=== PATIENT | male | born 1980 | race Caucasian/White ===

== ENCOUNTER 2019-10-10 02:13 | Observation (INO) ==
--- NOTE | 2019-10-10 02:38 | Emergency Department Note ---
History of Present Illness General Chief complaint: Neuro Symptoms/Deficit Stated complaint: LEFT SIDE NUMB, FINGERS, LEG, LIPS Time Seen by Provider: 10/10/19 02:26 History of Present Illness This is a 39-year-old male that presents to the emergency department via private vehicle with complaints of "left-sided numbness, fingers, leg, left". The patient states that earlier today while playing videogames around 3:15 PM he noticed that his left hand, left foot and upper lip were numb. He describes them as being asleep. He denies any trauma or injury. No history of CVA, TIA or other neurologic event. He denies any speech trouble or weakness. No fevers, chills, chest pain or shortness of breath. His mother at bedside does note that he has a history of shunt placement around 1989. Patient denies any pain. He does state that he took his blood pressure medication today but does sometimes forget to take his medications. Home Medications Home Medications Medication Instructions Recorded Confirmed Type atorvastatin [Lipitor] 10 mg PO DAILY 01/16/18 10/10/19 History lisinopril [Zestril] 40 mg PO DAILY 01/16/18 10/10/19 History Trulicity 0.75 mg SUBCUT WK 03/08/19 10/10/19 History gabapentin 300 mg PO HS 03/08/19 10/10/19 History Allergies Allergy/AdvReac Type Severity Reaction Status Date / Time Penicillins Allergy Intermediate rash, hives Verified 10/10/19 02:53 WALNUTS Allergy Severe ANAPHYLAXIS Uncoded 10/10/19 02:53 Past Med/Surg History Medical History (Updated 10/10/19 @ 21:38 by Reese Ziegler PA-C) Diabetes Hypertension Jaw dislocation Noncompliance with medication regimen Surgical History S/P [employer] shunt Social History Smoking Status: Never smoker Hx Alcohol Use: No Hx Substance Use: No Preferred Language: Italian Communication Ability: Effective Neck Skewer Required: No Beliefs That Will Affect Care: None marital status: Current Living Situation: Spouse current occupational status: unemployed Other Information That Helps Us Care for You: No Feels Safe at Home: Yes Safety Concerns: Feels Safe At This Time Review of Systems A total of 10 systems reviewed and were otherwise negative Physical Exam Vital Signs Vital Signs - 24 hr 10/10/19 02:17 10/10/19 02:31 10/10/19 02:57 Temperature 36.8 C Temperature Source Oral Pulse Rate 123 H Pulse Rate [Bilateral Apical] 104 H 107 H Pulse Rhythm [Bilateral Apical] Respiratory Rate 20 18 20 Respiratory Effort / Characteristics Non-Labored Spontaneous Non-Labored Respiratory Depth Normal Normal Respiratory Pattern Blood Pressure 196/142 H Blood Pressure [Right Arm] 201/131 H 209/137 H Blood Pressure Mean 160 Blood Pressure Mean [Right Arm] 154 161 Pulse Oximetry 95 97 94 Oxygen Delivery Method Room Air Room Air Room Air Sepsis New/Unexplained Change in Mental Status N/A Sepsis Action Taken by Nursing No Action Required 10/10/19 03:34 10/10/19 03:41 10/10/19 04:00 Temperature Temperature Source Pulse Rate Pulse Rate [Bilateral Apical] 88 92 H 86 Pulse Rhythm [Bilateral Apical] Regular Respiratory Rate 14 20 20 Respiratory Effort / Characteristics Non-Labored Spontaneous Respiratory Depth Normal Respiratory Pattern Regular Blood Pressure Blood Pressure [Right Arm] 179/106 H 181/110 H 190/121 H Blood Pressure Mean Blood Pressure Mean [Right Arm] 130 133 144 Pulse Oximetry 93 93 95 Oxygen Delivery Method Room Air Room Air Room Air Sepsis New/Unexplained Change in Mental Status Sepsis Action Taken by Nursing 10/10/19 04:58 Temperature Temperature Source Pulse Rate Pulse Rate [Bilateral Apical] 93 H Pulse Rhythm [Bilateral Apical] Respiratory Rate 20 Respiratory Effort / Characteristics Respiratory Depth Respiratory Pattern Blood Pressure Blood Pressure [Right Arm] 227/144 H Blood Pressure Mean Blood Pressure Mean [Right Arm] 171 Pulse Oximetry 96 Oxygen Delivery Method Room Air Sepsis New/Unexplained Change in Mental Status Sepsis Action Taken by Nursing VITAL SIGNS - Vital signs and nursing notes were reviewed. Stable and afebrile. GENERAL -39-year-old male appearing his stated age who is in no acute distress. Communicates well with provider and answers questions appropriately. SKIN - Without rashes. No meningeal or petechial rash. HEAD - NC/AT. EYES - PERRL with EOMI bilaterally. Sclera anicteric. EARS - No deformities of external structures noted on gross examination bilaterally. NOSE - Midline and without cyanosis. No epistaxis or purulent drainage noted. Septum midline without deviation or septal hematoma noted. MOUTH/OROPHARYNX - Without perioral cyanosis. Buccal mucosa pink and moist and without leukoplakia. Tongue midline with equal elevation of palate bilaterally. No tonsillar hypertrophy, erythema, or exudates noted. Fair dentition noted. NECK - Neck with FROM. Supple to palpation. No lymphadenopathy noted. No nuchal rigidity. LUNGS - Chest wall symmetric without accessory muscle use, intercostals retractions, or central cyanosis. Normal vesicular breath sounds CTA B/L. No wheezes, rales, or rhonchi appreciated. CARDIAC - RRR with S1/S2. No murmur, rubs, or gallops appreciated. ABDOMEN - Abdominal contour normal without pulsations or visible masses. BS normoactive all four quadrants. No tenderness, palpable masses, hepatosplenomegaly, or ascites noted. EXTREMITIES - No clubbing or peripheral cyanosis. No pretibial edema present. +5/5 strength noted in UE/LE bilaterally. NEUROLOGIC - Cranial nerves II through XII grossly intact. Sensory intact to light touch throughout. No neurovascular deficit on examination. Blending Operator strength within the upper extremity within normal limits. PSYCH - A&Ox3 and cooperates fully with examiner. Pt is very pleasant and interacts well with examiner. Course Administered Medications Discontinued Medications Amlodipine Besylate (Amlodipine Besylate 5 Mg Tab) 5 mg PO QAM [facility] Stop: 11/09/19 09:44 Last Admin: 10/10/19 09:51 Dose: 5 mg Documented by: [id number] Aspirin (Aspirin Chew 324 Mg) 324 mg PO NOW STA Stop: 10/10/19 04:30 Last Admin: 10/10/19 05:01 Dose: 324 mg Documented by: [id number] Atorvastatin Calcium (Atorvastatin 10 Mg Tab) 10 mg PO DAILY [facility]IN[facility] Stop: 11/09/19 08:59 Last Admin: 10/10/19 07:09 Dose: 10 mg Documented by: [id number] Enoxaparin Sodium (Enoxaparin Inj 40 Mg/0.4 Ml Syr) 40 mg SQ QAM [facility] Stop: 11/09/19 08:59 Last Admin: 10/10/19 07:09 Dose: 40 mg Documented by: [id number] Hydralazine HCl (Hydralazine Hcl 20 Mg/Ml Vial) 10 mg IV NOW STA Stop: 10/10/19 05:13 Last Admin: 10/10/19 05:27 Dose: 10 mg Documented by: [id number] Potassium Chloride/Sodium Chloride (Normal Saline W/20 Meq Kcl) 20 meq in 1,000 mls @ 40 mls/hr IV .Q24H ONE Stop: 10/11/19 05:49 Last Admin: 10/10/19 07:06 Dose: 40 mls/hr Documented by: [id number] Magnesium Sulfate/Dextrose (Magnesium Sulfate / D5w) 1 gm in 100 mls @ 50 mls/hr IV ONE ONE Stop: 10/10/19 07:54 Last Infusion: 10/10/19 08:19 Dose: 0 mls/hr Documented by: [id number] Admin: 10/10/19 07:06 Dose: 50 mls/hr Documented by: [id number] Insulin Aspart (Insulin Aspart 100 Units/Ml 3 Ml Pen) 0 units SC ACHS [facility]IN[facility] Stop: 11/09/19 05:49 Last Admin: 10/10/19 08:22 Dose: 3 units Documented by: [id number] Cosigned by: [id number] Admin: 10/10/19 07:07 Dose: 6 units Documented by: [id number] Cosigned by: [id number] Insulin Glargine (Insulin Glargine Solostar 100 Units/Ml 3 Ml Pen) 30 units SC NOW STA Stop: 10/10/19 05:02 Last Admin: 10/10/19 05:24 Dose: Not Given Documented by: [id number] Insulin Glargine (Insulin Glargine Solostar 100 Units/Ml 3 Ml Pen) 35 units SC NOW STA Stop: 10/10/19 05:07 Last Admin: 10/10/19 05:19 Dose: 35 units Documented by: [id number] Cosigned by: [id number] Ioversol (Optiray 320 125ml) 119 ml IV ONCE ONE Stop: 10/10/19 03:13 Last Admin: 10/10/19 03:12 Dose: 119 ml Documented by: [id number] Labetalol HCl (Labetalol Hcl Iv 5 Mg/Ml 20ml) 10 mg IV NOW STA Stop: 10/10/19 03:23 Last Admin: 10/10/19 03:29 Dose: 10 mg Documented by: [id number] Cosigned by: [id number] Labetalol HCl (Labetalol Hcl Iv 5 Mg/Ml 20ml) 10 mg IV NOW STA Stop: 10/10/19 04:28 Last Admin: 10/10/19 04:32 Dose: 10 mg Documented by: [id number] Cosigned by: [id number] Lisinopril (Lisinopril 20 Mg Tab) 20 mg PO NOW STA Stop: 10/10/19 05:02 Last Admin: 10/10/19 05:23 Dose: Not Given Documented by: [id number] Lisinopril (Lisinopril 20 Mg Tab) 40 mg PO NOW STA Stop: 10/10/19 05:06 Last Admin: 10/10/19 05:18 Dose: 40 mg Documented by: [id number] Potassium Chloride (Potassium Chloride 20 Meq Tabcr) 40 meq PO NOW STA Stop: 10/10/19 04:35 Last Admin: 10/10/19 05:01 Dose: 40 meq Documented by: [id number] Critical Care Time Total Critical Care Time: 35 I have personally spent greater than 35 minutes of critical care time in the direct management of this patient. This includes bedside care, interpretation of diagnostic studies, and testing, discussion with consultants, patient, and family members, and other required patient management activities. This 35 minutes is in excess of all separately billable procedures. Medical Decision Making Laboratory Data Result diagrams: 10/10/19 02:36 10/10/19 02:40 Lab Results 10/10/19 10/10/19 10/10/19 Range/Units 02:36 02:36 02:36 WBC 9.76 (4.8-10.8) K/uL RBC 6.00 (4.7-6.1) M/uL Hgb 18.1 H (14.0-18.0) g/dL POC Hgb (14.0-18.0) g/dl Hct 48.5 (42-52) % POC Hct (42-52) % MCV 80.8 (80-100) fL MCH 30.2 (25-34) pg MCHC 37.3 H (32-36) g/dL RDW Std Deviation 37.3 (36.4-46.3) fL RDW Coeff of Anjali 12.7 (11.5-14.5) % Plt Count 228 (130-400) K/uL MPV 10.8 H (7.4-10.4) fL Immature Gran % (Auto) 0.6 % Neut % (Auto) 55.3 % Lymph % (Auto) 34.5 % Jennings % (Auto) 8.1 % Eos % (Auto) 1.3 % Baso % (Auto) 0.2 % Neut # (Auto) 5.39 (1.4-6.5) K/uL Lymph # (Auto) 3.37 (1.2-3.4) K/uL Jennings # (Auto) 0.79 H (0.11-0.59) K/uL Eos # (Auto) 0.13 (0-0.5) K/uL Baso # (Auto) 0.02 (0-0.2) K/uL Immature Gran # (Auto) 0.06 H (0.00-0.02) K/uL PT 10.0 (9.0-12.0) Seconds INR 0.9 (0.9-1.1) APTT 26.9 (21.0-31.0) Seconds PTT Ratio 1.0 POC Sodium (135-144) mmol/L Sodium (136-145) mmol/L POC Potassium (3.3-5.0) mmol/L Potassium (3.5-5.1) mmol/L POC Chloride (101-112) mmol/L Chloride (98-107) mmol/L Carbon Dioxide (21-32) mmol/L POC Total CO2 (24-31) mmol/L Anion Gap (3-11) POC Anion Gap (16-25) mmol/L POC BUN (7-18) mg/dl BUN (7-18) mg/dl Creatinine (0.6-1.4) mg/dl POC Creatinine (0.6-1.3) mg/dl Est Cr Clr Drug Dosing ml/min Est GFR ( Amer) Est GFR (Non-Af Amer) BUN/Creatinine Ratio (10-20) Glucose (70-99) mg/dl POC Glucose (other) (70-99) mg/dl Estimat Average Glucose 266 mg/dl Hemoglobin A1c 10.9 H (4.5-5.6) % Calcium (8.5-10.1) mg/dl POC Ioniz Calcium Manoj (1.12-1.32) mmol/l Magnesium (1.8-2.4) mg/dl Total Bilirubin (0.2-1) mg/dl AST (15-37) U/L ALT (12-78) U/L Alkaline Phosphatase (45-117) U/L Troponin I (0-0.045) ng/ml Total Protein (6.4-8.2) gm/dl Albumin (3.4-5.0) gm/dl Globulin (2.5-4.0) gm/dl Albumin/Globulin Ratio (0.9-2) Beta-Hydroxybutyric Acd (0.2-2.81) mg/dl TSH (0.300-4.500) uIu/ml 10/10/19 10/10/19 Range/Units 02:40 02:48 WBC (4.8-10.8) K/uL RBC (4.7-6.1) M/uL Hgb (14.0-18.0) g/dL POC Hgb 17.0 (14.0-18.0) g/dl Hct (42-52) % POC Hct 50 (42-52) % MCV (80-100) fL MCH (25-34) pg MCHC (32-36) g/dL RDW Std Deviation (36.4-46.3) fL RDW Coeff of Anjali (11.5-14.5) % Plt Count (130-400) K/uL MPV (7.4-10.4) fL Immature Gran % (Auto) % Neut % (Auto) % Lymph % (Auto) % Jennings % (Auto) % Eos % (Auto) % Baso % (Auto) % Neut # (Auto) (1.4-6.5) K/uL Lymph # (Auto) (1.2-3.4) K/uL Jennings # (Auto) (0.11-0.59) K/uL Eos # (Auto) (0-0.5) K/uL Baso # (Auto) (0-0.2) K/uL Immature Gran # (Auto) (0.00-0.02) K/uL PT (9.0-12.0) Seconds INR (0.9-1.1) APTT (21.0-31.0) Seconds PTT Ratio POC Sodium 134 L (135-144) mmol/L Sodium 134 L (136-145) mmol/L POC Potassium 3.2 L (3.3-5.0) mmol/L Potassium 3.3 L (3.5-5.1) mmol/L POC Chloride 97 L (101-112) mmol/L Chloride 101 (98-107) mmol/L Carbon Dioxide 26 (21-32) mmol/L POC Total CO2 26 (24-31) mmol/L Anion Gap 7.0 (3-11) POC Anion Gap 15.0 L (16-25) mmol/L POC BUN 10 (7-18) mg/dl BUN 9 (7-18) mg/dl Creatinine 1.15 (0.6-1.4) mg/dl POC Creatinine 0.9 (0.6-1.3) mg/dl Est Cr Clr Drug Dosing 104.0 ml/min Est GFR ( Amer) 91.7 Est GFR (Non-Af Amer) 79.2 BUN/Creatinine Ratio 8.2 L (10-20) Glucose 318 H* (70-99) mg/dl POC Glucose (other) 325 H (70-99) mg/dl Estimat Average Glucose mg/dl Hemoglobin A1c (4.5-5.6) % Calcium 8.0 L (8.5-10.1) mg/dl POC Ioniz Calcium Manoj 1.17 (1.12-1.32) mmol/l Magnesium 1.7 L (1.8-2.4) mg/dl Total Bilirubin 0.6 (0.2-1) mg/dl AST 33 (15-37) U/L ALT 57 (12-78) U/L Alkaline Phosphatase 92 (45-117) U/L Troponin I 0.034 (0-0.045) ng/ml Total Protein 7.1 (6.4-8.2) gm/dl Albumin 3.0 L (3.4-5.0) gm/dl Globulin 4.1 H (2.5-4.0) gm/dl Albumin/Globulin Ratio 0.7 L (0.9-2) Beta-Hydroxybutyric Acd (0.2-2.81) mg/dl TSH 4.220 (0.300-4.500) uIu/ml Imaging Data Radiologist's Impression: CT HEAD: No intracranial hemorrhage, mass-effect, or edema. No acute infarct. No hydrocephalus. There is a left-sided shunt catheter which terminates within a left temporal arachnoid cyst. Radiologist: Larry Chiang MD Study ready at 03:12 and initial results transmitted at 03:45 CTA HEAD: No arterial occlusion, high-grade stenosis, aneurysm, or dissection. Radiologist: Larry Chiang MD Study ready at 03:12 and initial results transmitted at 03:47 CTA NECK: No arterial occlusion, high-grade stenosis, aneurysm, or dissection. Radiologist: Larry Chiang MD Study ready at 03:15 and initial results transmitted at 03:50 ECG Data Additional Comments: Sinus tachycardia rate of 102 bpm. QTc [address] No ST elevation. No ischemic change. This is compared EKG of August 2015 and no significant change was found. MDM Narrative Patient was seen and evaluated as above in room A3. Review was performed of nursing notes and vital signs. I did review pertinent previous visits and patient history. After obtaining a thorough history and physical examination the above work up was performed. Patient presents to us today with about 11 hours now of left hand, left foot and left upper lip numbness. No trauma or injury. No speech trouble or true weakness on examination. Patient is hypertensive on arrival. He is afebrile. Given the patient's presentation CTA head neck as well as noncontrast CT scan of the head obtained. Patient was not made a stroke alert secondary to duration of symptoms and is outside of the TPA window. He was given IV labetalol x2 here secondary to persistent hypertension. The imaging did not reveal any acute process. No leukocytosis or anemia. There is decrease in sodium, potassium as well as magnesium. Glucose noted to be 318. With the patient's presentation and hypertension it was felt that further evaluation and management in inpatient setting would be warranted. Case discussed with the attending physician as well as the hospitalist. Patient although initially apprehensive to staying as he was worried about coronavirus was willing to stay for further evaluation and management once a thorough discussion of benefit versus risk was had with the patient. Case was discussed with the attending physician. GCS: 15 In the evaluation and treatment of this patient, the following differential diagnoses were considered: Concussion, Contrecoup Injury, Brain Tumor, Depression, Encephalitis, Hypothyroidism, Meningitis, CVA, TIA, Migraine, Cluster Headache, Intracranial Abnormality, Intracranial Hemorrhage, Subdural Hematoma, Subarachnoid Hemorrhage, Hydrocephalus. Impression & Plan Hypertensive crisis Discharge Plan Visit Data Chief Complaint: Neuro Symptoms/Deficit Stated Complaint: LEFT SIDE NUMB, FINGERS, LEG, LIPS ED Provider: Aditya Mcelroy ED Midlevel Provider: Reese Ziegler Discharge Problem: Hypertensive crisis Patient Disposition: Admitted As Inpatient Discharge Instructions Interventions: ED Discharge Assessment Last Done: 10/10/19 05:32
[2019-10-10 02:55] LABS: Basophils # (auto) 0.02 K/uL (0-0.2); Basophils % (auto) 0.2 %; Eosinophils # (auto) 0.13 K/uL (0-0.5); Eosinophils % (auto) 1.3 %; Hematocrit (blood only) 48.5 % (42-52); Hemoglobin 18.1 g/dL (14.0-18.0); Immature Granulocytes # (auto) 0.06 K/uL (0.00-0.02); Immature Granulocytes % (auto) 0.6 %; Lymphocytes # (auto) 3.37 K/uL (1.2-3.4); Lymphocytes % (auto) 34.5 %; Mean Corpuscular Hemoglobin 30.2 pg (25-34); Mean Corpuscular Hgb Conc 37.3 g/dL (32-36); Mean Corpuscular Volume 80.8 fL (80-100); Mean Platelet Volume 10.8 fL (7.4-10.4); Monocytes # (auto) 0.79 K/uL (0.11-0.59); Monocytes % (auto) 8.1 %; Neutrophils # (auto) 5.39 K/uL (1.4-6.5); Neutrophils % (auto) 55.3 %; Platelet Count 228 K/uL (130-400); RDW Coefficient of Variation 12.7 % (11.5-14.5); RDW Standard Deviation 37.3 fL (36.4-46.3); White Blood Count 9.76 K/uL (4.8-10.8)
[2019-10-10 03:02] LABS: INR 0.9 (0.9-1.1); Partial Thromboplastin Time 26.9 Seconds (21.0-31.0)
[2019-10-10 03:04] LABS: iSTAT Creatinine 0.9 mg/dl (0.6-1.3); iSTAT Ionized Calcium 1.17 mmol/l (1.12-1.32); iSTAT Potassium 3.2 mmol/L (3.3-5.0)
[2019-10-10] MEDS ORDERED: OPTIRAY 320 125ml IV ONE (03:12)
[2019-10-10 03:19] LABS: Albumin Globulin Ratio 0.7 (0.9-2); BUN Creatinine Ratio 8.2 (10-20); Bilirubin,Total 0.6 mg/dl (0.2-1); Est GFR (African American) 91.7; Est GFR (Non-African American) 79.2; Globulin 4.1 gm/dl (2.5-4.0); Magnesium 1.7 mg/dl (1.8-2.4); Potassium 3.3 mmol/L (3.5-5.1); Total Protein 7.1 gm/dl (6.4-8.2); Troponin I 0.034 ng/ml (0-0.045)
[2019-10-10] MEDS ORDERED: LABETALOL HCL IV 5 MG/ML 20ML IV STA ×2 (03:22→04:27)
[2019-10-10] MEDS ORDERED: ASPIRIN CHEW 324 MG PO STA (04:29)
[2019-10-10] MEDS ORDERED: POTASSIUM CHLORIDE 20 MEQ TABCR PO STA (04:34)
[2019-10-10] MEDS ORDERED: INSULIN GLARGINE SOLOSTAR 100 UNITS/ML 3 ML PEN SC STA ×2 (05:01→05:06)
[2019-10-10] MEDS ORDERED: lisinopriL 20 MG TAB PO STA ×2 (05:01→05:05)
[2019-10-10] MEDS ORDERED: HydrALAZINE HCL 20 MG/ML VIAL IV STA (05:12)
--- NOTE | 2019-10-10 05:12 | History & Physical Report ---
Date of Service October 10, 2019 Assessment & Plan (1) Hypertensive crisis: Uncontrolled BP associated with CVA symptoms hx medication noncompliance hx PAD as per records (LE circulation) DM 2 on Trulicity, suboptimal control as of recent outpatient hemoglobin A1c all 11.8 June 2019h Hypokalemia, hypomagnesemia hx childhood brain tumor status post surgery. Possible intellectual disability/impairment PCU Permissive hypertension given possible strokelike symptoms Hydralazine 1 dose now given SBP 200s despite 2 doses of Labetalol Facilitate home lisinopril Consider adding Norvasc to regimen depending on control Aspirin for stroke prevention Neurochecks MRI brain, TTE, Neurology consult RE numbness left side Check lipid profile Replace electrolytes Basal insulin, ISS BG goal [id number], carb count coverage, update hemoglobin A1c Diabetic education Patient counseled about need to comply with home medications given history of vascular disease. PT OT eval DVT prophylaxis per Lovenox subcu Full code Will request providers to contact patient's with updates regarding plan of care due to some degree of intellectual impairment perceived during patient encounter. (Ms. Nilsa Hernández, contact #[phone]) Text document was generated using [employer] voice recognition software. It may contain grammatical or spelling errors. Kindly contact undersigned for clarification of any documentation item in question. History of Present Illness Chief Complaint: Numbness of the lip and left side Primary Care Provider: Lexus Mitchell, History obtained from patient, family, and records. 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 Yesterday afternoon patient noted numbness on his upper lip later followed by numbness of the left hand and left foot while playing video games. No chest pain, no S OB. No headache. No prior episodes in the past. Admits to erratic compliance with home medications. Last last time he took aspirin was last week for headache symptoms. No unusual stress at home. Denies NSAID intake. No concerns about snoring during sleep as per . No recent tick bites. Patient does not check his blood pressure at home. At the ER, SBP 220s at the highest. Patient received 2 doses of IV Labetalol at the ER. Patient given aspirin at the ER for possible stroke. Patient initially did not want to stay for admission citing concerns about potential COVID-19 exposure. Patient later relented after further discussion with the ER provider. Patient currently stating that he will just stay for 1 day and will denny the hospital if " I get COVID-19." Medical History as above Surgical History : SIGNALMAN shunt surgery Family History : Diabetes, lung cancer Personal/Social history : Non-smoker, no EtOH intake, disabled Allergies Allergy/AdvReac Type Severity Reaction Status Date / Time Penicillins Allergy Intermediate rash, hives Verified 10/10/19 02:53 WALNUTS Allergy Severe ANAPHYLAXIS Uncoded 10/10/19 02:53 Home Medications Home Medications Medication Instructions Recorded Confirmed Type atorvastatin [Lipitor] 10 mg PO DAILY 01/16/18 10/10/19 History lisinopril [Zestril] 40 mg PO DAILY 01/16/18 10/10/19 History dulaglutide [Trulicity] 0.75 mg SUBCUT WK 03/08/19 10/10/19 History gabapentin 300 mg PO HS 03/08/19 10/10/19 History Past Med/Surg History Medical History (Updated 10/10/19 @ 06:12 by Galileo Diallo MD) Diabetes Hypertension Jaw dislocation Noncompliance with medication regimen Surgical History S/P SIGNALMAN shunt Social History Smoking Status: Never smoker Hx Alcohol Use: No Hx Substance Use: No Preferred Language: Tamazight Communication Ability: Effective Bolt Man Required: No Beliefs That Will Affect Care: None marital status: Current Living Situation: Spouse current occupational status: unemployed Other Information That Helps Us Care for You: No Feels Safe at Home: Yes Safety Concerns: Feels Safe At This Time Review of Systems Review of Systems: As per HPI, all 10 systems reviewed, all other ROS negative Physical Exam Physical Exam: GENERAL: Comfortable, obese, no respiratory distress SKIN: Normal color, warm HEENT: [place] palpebral conjunctivae, no ptosis, dry buccal mucosa NECK : Supple, short neck, no tenderness CHEST : CTA, no tenderness HEART : RRR, no obvious murmurs ABDOMEN: Some distention, nontender EXTREMITIES : No LE swelling/tenderness, no other conspicuous deformities noted NEUROLOGIC : Coherent, no facial asymmetry, episodic dysarthria (chronic speech impediment as per ), no other gross focality Results & Data Results & Data ([facility]) Vital Signs (Past 12 Hours) Vital Signs Temp Pulse Pulse Resp BP BP Pulse Ox 10/10/19 04:58 93 H 20 227/144 H 96 10/10/19 04:00 86 20 190/121 H 95 10/10/19 03:41 92 H 20 181/110 H 93 10/10/19 03:34 88 14 179/106 H 93 10/10/19 02:57 107 H 20 209/137 H 94 10/10/19 02:31 104 H 18 201/131 H 97 10/10/19 02:17 36.8 C 123 H 20 196/142 H 95 Laboratory Results Laboratory Results WBC 9.76 K/uL (4.8-10.8) 10/10/19 02:36 RBC 6.00 M/uL (4.7-6.1) 10/10/19 02:36 Hgb 18.1 g/dL (14.0-18.0) H 10/10/19 02:36 POC Hgb 17.0 g/dl (14.0-18.0) 10/10/19 02:48 Hct 48.5 % (42-52) 10/10/19 02:36 POC Hct 50 % (42-52) 10/10/19 02:48 MCV 80.8 fL (80-100) 10/10/19 02:36 MCH 30.2 pg (25-34) 10/10/19 02:36 MCHC 37.3 g/dL (32-36) H 10/10/19 02:36 RDW Std Deviation 37.3 fL (36.4-46.3) 10/10/19 02:36 RDW Coeff of Anjali 12.7 % (11.5-14.5) 10/10/19 02:36 Plt Count 228 K/uL (130-400) 10/10/19 02:36 MPV 10.8 fL (7.4-10.4) H 10/10/19 02:36 Immature Gran % (Auto) 0.6 % 10/10/19 02:36 Neut % (Auto) 55.3 % 10/10/19 02:36 Lymph % (Auto) 34.5 % 10/10/19 02:36 Campbell % (Auto) 8.1 % 10/10/19 02:36 Eos % (Auto) 1.3 % 10/10/19 02:36 Baso % (Auto) 0.2 % 10/10/19 02:36 Neut # (Auto) 5.39 K/uL (1.4-6.5) 10/10/19 02:36 Lymph # (Auto) 3.37 K/uL (1.2-3.4) 10/10/19 02:36 Campbell # (Auto) 0.79 K/uL (0.11-0.59) H 10/10/19 02:36 Eos # (Auto) 0.13 K/uL (0-0.5) 10/10/19 02:36 Baso # (Auto) 0.02 K/uL (0-0.2) 10/10/19 02:36 Immature Gran # (Auto) 0.06 K/uL (0.00-0.02) H 10/10/19 02:36 PT 10.0 Seconds (9.0-12.0) 10/10/19 02:36 INR 0.9 (0.9-1.1) 10/10/19 02:36 APTT 26.9 Seconds (21.0-31.0) 10/10/19 02:36 PTT Ratio 1.0 10/10/19 02:36 POC Sodium 134 mmol/L (135-144) L 10/10/19 02:48 Sodium 134 mmol/L (136-145) L 10/10/19 02:40 POC Potassium 3.2 mmol/L (3.3-5.0) L 10/10/19 02:48 Potassium 3.3 mmol/L (3.5-5.1) L 10/10/19 02:40 POC Chloride 97 mmol/L (101-112) L 10/10/19 02:48 Chloride 101 mmol/L (98-107) 10/10/19 02:40 Carbon Dioxide 26 mmol/L (21-32) 10/10/19 02:40 POC Total CO2 26 mmol/L (24-31) 10/10/19 02:48 Anion Gap 7.0 (3-11) 10/10/19 02:40 POC Anion Gap 15.0 mmol/L (16-25) L 10/10/19 02:48 POC BUN 10 mg/dl (7-18) 10/10/19 02:48 BUN 9 mg/dl (7-18) 10/10/19 02:40 Creatinine 1.15 mg/dl (0.6-1.4) 10/10/19 02:40 POC Creatinine 0.9 mg/dl (0.6-1.3) 10/10/19 02:48 Est Cr Clr Drug Dosing 104.0 ml/min 10/10/19 02:40 Est GFR ( Amer) 91.7 10/10/19 02:40 Est GFR (Non-Af Amer) 79.2 10/10/19 02:40 BUN/Creatinine Ratio 8.2 (10-20) L 10/10/19 02:40 Glucose 318 mg/dl (70-99) H* 10/10/19 02:40 POC Glucose (other) 325 mg/dl (70-99) H 10/10/19 02:48 Calcium 8.0 mg/dl (8.5-10.1) L 10/10/19 02:40 POC Ioniz Calcium Manoj 1.17 mmol/l (1.12-1.32) 10/10/19 02:48 Magnesium 1.7 mg/dl (1.8-2.4) L 10/10/19 02:40 Total Bilirubin 0.6 mg/dl (0.2-1) 10/10/19 02:40 AST 33 U/L (15-37) 10/10/19 02:40 ALT 57 U/L (12-78) 10/10/19 02:40 Alkaline Phosphatase 92 U/L (45-117) 10/10/19 02:40 Troponin I 0.034 ng/ml (0-0.045) 10/10/19 02:40 Total Protein 7.1 gm/dl (6.4-8.2) 10/10/19 02:40 Albumin 3.0 gm/dl (3.4-5.0) L 10/10/19 02:40 Globulin 4.1 gm/dl (2.5-4.0) H 10/10/19 02:40 Albumin/Globulin Ratio 0.7 (0.9-2) L 10/10/19 02:40 Beta-Hydroxybutyric Acd mg/dl (0.2-2.81) 10/10/19 02:[address] head initial read: No intracranial hemorrhage, mass-effect, or edema. No acute infarct. No hydrocephalus. Left-sided shunt catheter which terminates within the left temporal arachnoid cyst. CTA head/neck initial read no arterial occlusion, high-grade stenosis, aneurysm or dissection. Chest x-ray as per my interpretation cardiomegaly, no congestion EKG as per my interpretation : Rate 105, sinus tachycardia, LAD, LAFB, T wave flattening lateral leads
[2019-10-10 05:21] LABS: Thyroid Stimulating Hormone 4.22 uIu/ml (0.300-4.500)
[2019-10-10] MEDS ORDERED: GLUCOSE 40% GEL 15 GM TUBE PO PRN (05:50)
[2019-10-10] MEDS ORDERED: PROMETHAZINE HCL 12.5 MG in SODIUM CHLORIDE 0.9% 50 ML IV PRN (05:50)
[2019-10-10] MEDS ORDERED: NSS + 20MEQ KCL 20 MEQ/1,000 ML BAG IV ONE (05:50)
[2019-10-10] MEDS ORDERED: GLUCAGON FOR INJ 1 MG VIAL SQ PRN (05:50)
[2019-10-10] MEDS ORDERED: CARBOHYDRATES FOR HYPOGLYCEMIA PO PRN (05:50)
[2019-10-10] MEDS ORDERED: ACETAMINOPHEN 325 MG TAB PO PRN (05:50)
[2019-10-10] MEDS ORDERED: LORazepam 0.25 MG/0.5 ML VIAL IV PRN (05:50)
[2019-10-10] MEDS ORDERED: TRAMADOL HCL 50 MG TABLET PO PRN (05:50)
[2019-10-10] MEDS ORDERED: GLUCOSE 10 TABS/TUBE PO PRN (05:50)
[2019-10-10] MEDS ORDERED: NITROGLYCERIN SL 0.4 MG/TAB TAB SL PRN (05:50)
[2019-10-10] MEDS ORDERED: DEXTROSE 50% 50 ML SYRINGE IV PRN (05:50)
[2019-10-10] MEDS ORDERED: MAGNESIUM SULFATE / D5W 1 GM/100 ML BAG IV ONE (05:55)
[2019-10-10 06:13] LABS: Estimated Average Glucose 266 mg/dl; Hemoglobin A1C 10.9 % (4.5-5.6)
--- NOTE | 2019-10-10 06:52 | XRay Report ---
XR chest 1V portable HISTORY: 39 years-old Male htn acute hypertension COMPARISON: Chest radiographs 03/15/2015 TECHNIQUE: Portable AP view of the chest FINDINGS: Cardiac silhouette is enlarged. A catheter is again noted projecting over the left neck and chest. No pneumothorax, pleural effusion, airspace consolidation or overt pulmonary edema. Bones of the chest appear grossly intact. IMPRESSION: No acute process. ACT 112: Negative or not required by law. The above report was generated using voice recognition software. It may contain grammatical, syntax o r spelling errors. Electronically signed by: Kaz Lindo M.D. 10/10/2019 6:51 AM
[2019-10-10] MEDS: INSULIN ASPART 100 UNITS/ML 3 ML PEN SC SCH ×2 (07:07→08:22)
--- NOTE | 2019-10-10 07:11 | CT Scan Report ---
CT angio neck with con, CT angio head w con CLINICAL HISTORY: 39 years-old Male with Stroke evaluation, upper lip, L hand, L foot numb. Acute strokelike symptoms COMPARISON STUDY: Head CT of same day, head CT 03/15/2015. TECHNIQUE: Following the IV administration of 119 mL of Optiray 320, CT angiogram of the head and nec k was performed from the aortic arch to the skull apex. Images are reviewed in the axial, sagittal, a nd coronal planes. 3-D MIPS images are created and assessed. IV contrast was administered without com plication. All measurements were calculated based on NASCET criteria. A dose lowering technique was utilized adhering to the principles of ALARA. CT DOSE: 1261.33 mGy.cm FINDINGS: The opacified pulmonary artery is unremarkable. Bovine morphology of aortic arch. Patency o f the imaged bilateral subclavian arteries. Innominate and common carotid arteries are widely patent. There is mild mixed plaque of the left carotid bulb resulting in less than 50% luminal narrowing. Th ere is mild mixed plaque of the bilateral cavernous segments without high-grade stenosis. The interna l carotid arteries are patent. The middle and anterior cerebral arteries appear patent. There is no a bnormal intracranial enhancement. There is a shunt catheter which extends to the left temporal calvar ium into the anterior aspect of the left middle cranial fossa. CSF attenuating structure is noted wit hin this distribution which is generally unchanged from the 2016 comparison. The imaged shunt cathete r appears intact. No pneumothorax. Unremarkable soft tissues. Dental caries. Bones appear intact. IMPRESSION:Unremarkable CTA of the head and neck. ACT 112: Negative or not required by law. The above report was generated using voice recognition software. It may contain grammatical, syntax o r spelling errors. Electronically signed by: Kaz Lindo M.D. 10/10/2019 7:10 AM
--- NOTE | 2019-10-10 07:56 | CT Scan Report ---
CT OF THE HEAD WITHOUT CONTRAST CLINICAL HISTORY: Stroke evaluation, upper lip, L hand, L foot numb COMPARISON STUDY: Head CT March 15, 2015. TECHNIQUE: Helical axial images of the head were obtained without IV contrast. Automated exposure con trol was utilized for the study. A dose lowering technique was utilized adhering to the principles o f ALARA. FINDINGS: A shunt catheter terminates within an arachnoid cyst within the left middle cranial fossa. The appearance is unchanged since exam of March 15, 2015. No acute intracranial hemorrhage, midline shift or mass effect is present. The ventricular system is unremarkable. The basilar cisterns are pa tent. No extra-axial collections are present. There are no findings to suggest acute dural sinus thro mbosis or acute territorial infarct. No significant calvarial abnormalities are present. Visualized p ortions of the sinuses and mastoid air cells are clear. IMPRESSION: No acute intracranial findings. No change in appearance of the brain since exam of 2015. ACT 112: Negative or not required by law. Electronically signed by: Gio Taveras M.D. 10/10/2019 7:55 AM
[2019-10-10 07:58] LABS: Appearance Urine Clear (Clear); Bacteria Urine Automated Negative (Negative); Bilirubin Urine Negative (Negative); Blood Urine Negative (Negative); Cast Urine Automated 0 /lpf (0-5); Color Urine Yellow; Epithelial Cell Urine Auto 0-5 /lpf (0-5); Glucose Urine UA 3+ (Negative); Ketones Urine Negative (Negative); Leukocyte Esterase Urine Negative (Negative); Nitrite Urine Negative (Negative); Protein Urine 2+ (Negative); RBC Urine Automated 0-4 /hpf (0-4); Specific Gravity Urine 1.044 (1.000-1.030); Urobilinogen Urine Negative (Negative); pH Urine 6.5 (4.5-7.5)
[2019-10-10 08:25] LABS: Amphetamines+Metham, Urine Neg (Neg); Barbiturates, Urine Neg (Neg); Benzodiazepine, Urine Neg (Neg); Cocaine, Urine Neg (Neg); MDMA (Ecstacy), Urine Neg (Neg); Methadone, Urine Neg (Neg); Opiate, Urine Neg (Neg); Phencyclidine, Urine Neg (Neg)
[2019-10-10] MEDS ORDERED: ENOXAPARIN INJ 40 MG/0.4 ML SYR SQ SCH (09:00)
[2019-10-10] MEDS ORDERED: ATORVASTATIN 10 MG TAB PO SCH (09:00)
[2019-10-10] MEDS ORDERED: AMLODIPINE BESYLATE 5 MG TAB PO SCH (09:45)
--- NOTE | 2019-10-10 10:34 | Communication Note ---
Date of Service: October 10, 2019 Received call from the nurse that patient wanted to signed AMA. I explained to the patient since he came to the hospital for stroke like symptoms that we need to r/o for CVA. Due to his shunt that we are unable to get an MRI, but we can arrange for a repeat CT head later today. I also told him that we need his BP to be a little better and i am waiting for the Echocardiogram before considering to discharge him. I told him about the risks and complications by leaving AMA such as worsening blood pressure that can lead to stroke or multi organs failure sure as kidney failure and heart attack and even . I called the after obtaining permission from the patient and informed the that Mr Felton wants to sign AMA and explained to the about the risks and complications by leaving AMA. Pt was advised to follow up with his PCP for his blood pressure. He said that he wanted to leave now and already signed the AMA form. MD Daniel
--- NOTE | 2019-10-10 10:42 | Discharge Summary ---
Date of Service October 10, 2019 Admission HPI Per Admitting Provider History obtained from patient, family, and records. 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 Yesterday afternoon patient noted numbness on his upper lip later followed by numbness of the left hand and left foot while playing video games. No chest pain, no S OB. No headache. No prior episodes in the past. Admits to erratic compliance with home medications. Last last time he took aspirin was last week for headache symptoms. No unusual stress at home. Denies NSAID intake. No concerns about snoring during sleep as per . No recent tick bites. Patient does not check his blood pressure at home. At the ER, SBP 220s at the highest. Patient received 2 doses of IV Labetalol at the ER. Patient given aspirin at the ER for possible stroke. Patient initially did not want to stay for admission citing concerns about potential COVID-19 exposure. Patient later relented after further discussion with the ER provider. Patient currently stating that he will just stay for 1 day and will denny the hospital if " I get COVID-19." Medical History as above Surgical History : MASTER [employer]INTER shunt surgery Family History : Diabetes, lung cancer Personal/Social history : Non-smoker, no EtOH intake, disabled Admission Exam Per Admitting Provider GENERAL: Comfortable, obese, no respiratory distress SKIN: Normal color, warm HEENT: [place] palpebral conjunctivae, no ptosis, dry buccal mucosa NECK : Supple, short neck, no tenderness CHEST : CTA, no tenderness HEART : RRR, no obvious murmurs ABDOMEN: Some distention, nontender EXTREMITIES : No LE swelling/tenderness, no other conspicuous deformities noted NEUROLOGIC : Coherent, no facial asymmetry, episodic dysarthria (chronic speech impediment as per ), no other gross focality Principal Diagnosis Stroke likes symptoms Hypertension Crisis Uncontrolled diabetes Discharge Exam Unable to obtain since pt since AMA Discharge Data Allergies Allergy/AdvReac Type Severity Reaction Status Date / Time Penicillins Allergy Intermediate rash, hives Verified 10/10/19 02:53 WALNUTS Allergy Severe ANAPHYLAXIS Uncoded 10/10/19 02:53 Consultations 10/10/19 04:29 ED Decision to Admit Stat 10/10/19 05:50 Consult Case Management - Discharge Planning Routine Consult Neurology Routine Ordered Studies 10/10/19 02:33 CT angio head w con Urgent CT angio neck with con Urgent CT head/brain wo con Urgent 10/10/19 05:50 MR brain wo con Routine XR chest 1V portable HISTORY: 39 years-old Male htn acute hypertension COMPARISON: Chest radiographs 03/15/2015 TECHNIQUE: Portable AP view of the chest FINDINGS: Cardiac silhouette is enlarged. A catheter is again noted projecting over the left neck and chest. No pneumothorax, pleural effusion, airspace consolidation or overt pulmonary edema. Bones of the chest appear grossly intact. IMPRESSION: No acute process. ACT 112: Negative or not required by law. The above report was generated using voice recognition software. It may contain grammatical, syntax or spelling errors. Electronically signed by: Kaz Lindo M.D. 10/10/2019 6:51 AM Dictated: 10/10/19 0650 Transcribed: 10/10/[address] angio neck with con, CT angio head w con CLINICAL HISTORY: 39 years-old Male with Stroke evaluation, upper lip, L hand, L foot numb. Acute strokelike symptoms COMPARISON STUDY: Head CT of same day, head CT 03/15/2015. TECHNIQUE: Following the IV administration of 119 mL of Optiray 320, CT angiogram of the head and neck was performed from the aortic arch to the skull apex. Images are reviewed in the axial, sagittal, and coronal planes. 3-D MIPS images are created and assessed. IV contrast was administered without complication. All measurements were calculated based on NASCET criteria. A dose lowering technique was utilized adhering to the principles of ALARA. CT DOSE: 1261.33 mGy.cm FINDINGS: The opacified pulmonary artery is unremarkable. Bovine morphology of aortic arch. Patency of the imaged bilateral subclavian arteries. Innominate and common carotid arteries are widely patent. There is mild mixed plaque of the left carotid bulb resulting in less than 50% luminal narrowing. There is mild mixed plaque of the bilateral cavernous segments without high-grade stenosis. The internal carotid arteries are patent. The middle and anterior cerebral arteries appear patent. There is no abnormal intracranial enhancement. There is a shunt catheter which extends to the left temporal calvarium into the anterior aspect of the left middle cranial fossa. CSF attenuating structure is noted within this distribution which is generally unchanged from the 2015 comparison. The imaged shunt catheter appears intact. No pneumothorax. Unremarkable soft tissues. Dental caries. Bones appear intact. IMPRESSION:Unremarkable CTA of the head and neck. ACT 112: Negative or not required by law. The above report was generated using voice recognition software. It may contain grammatical, syntax or spelling errors. Electronically signed by: Kaz Lindo M.D. 10/10/2019 7:10 AM Dictated: 10/10/19 07 Transcribed: 10/10/19701 CT angio neck with con, CT angio head w con CLINICAL HISTORY: 39 years-old Male with Stroke evaluation, upper lip, L hand, L foot numb. Acute strokelike symptoms COMPARISON STUDY: Head CT of same day, head CT 03/15/2015. TECHNIQUE: Following the IV administration of 119 mL of Optiray 320, CT angiogram of the head and neck was performed from the aortic arch to the skull apex. Images are reviewed in the axial, sagittal, and coronal planes. 3-D MIPS images are created and assessed. IV contrast was administered without complication. All measurements were calculated based on NASCET criteria. A dose lowering technique was utilized adhering to the principles of ALARA. CT DOSE: 1261.33 mGy.cm FINDINGS: The opacified pulmonary artery is unremarkable. Bovine morphology of aortic arch. Patency of the imaged bilateral subclavian arteries. Innominate and common carotid arteries are widely patent. There is mild mixed plaque of the left carotid bulb resulting in less than 50% luminal narrowing. There is mild mixed plaque of the bilateral cavernous segments without high-grade stenosis. The internal carotid arteries are patent. The middle and anterior cerebral arteries appear patent. There is no abnormal intracranial enhancement. There is a shunt catheter which extends to the left temporal calvarium into the anterior aspect of the left middle cranial fossa. CSF attenuating structure is noted within this distribution which is generally unchanged from the 2016 comparison. The imaged shunt catheter appears intact. No pneumothorax. Unremarkable soft tissues. Dental caries. Bones appear intact. IMPRESSION:Unremarkable CTA of the head and neck. ACT 112: Negative or not required by law. The above report was generated using voice recognition software. It may contain grammatical, syntax or spelling errors. Electronically signed by: Kaz Lindo M.D. 10/10/2019 7:10 AM Dictated: 10/10/19 07 Transcribed: 10/10/19701 CT OF THE HEAD WITHOUT CONTRAST CLINICAL HISTORY: Stroke evaluation, upper lip, L hand, L foot numb COMPARISON STUDY: Head CT March 15, 2015. TECHNIQUE: Helical axial images of the head were obtained without IV contrast. Automated exposure control was utilized for the study. A dose lowering technique was utilized adhering to the principles of ALARA. FINDINGS: A shunt catheter terminates within an arachnoid cyst within the left middle cranial fossa. The appearance is unchanged since exam of March 15, 2015. No acute intracranial hemorrhage, midline shift or mass effect is present. The ventricular system is unremarkable. The basilar cisterns are patent. No extra-axial collections are present. There are no findings to suggest acute dural sinus thrombosis or acute territorial infarct. No significant calvarial abnormalities are present. Visualized portions of the sinuses and mastoid air cells are clear. IMPRESSION: No acute intracranial findings. No change in appearance of the brain since exam of March 15, 2015. ACT 112: Negative or not required by law. Electronically signed by: Gio Taveras M.D. 10/10/2019 7:55 AM Dictated: 10/10/19 0752 Transcribed: 10/10/19 0752 Hospital Course (1) Hypertensive crisis: Uncontrolled BP associated with CVA symptoms hx medication noncompliance hx PAD as per records (LE circulation) DM 2 on Trulicity, suboptimal control as of recent outpatient hemoglobin A1c all 11.8 June 2019h Hypokalemia, hypomagnesemia hx childhood brain tumor status post surgery. 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 PT OT eval DVT prophylaxis per Lovenox subcu Full code Will request providers to contact patient's with updates regarding plan of care due to some degree of intellectual impairment perceived during patient encounter. (Ms. Nilsa Hernández, contact #[phone]) Text document was generated using [employer] voice recognition software. It may contain grammatical or spelling errors. Kindly contact undersigned for clarification of any documentation item in question. Total Time Total Time Spent Total Time Spent (In Minutes): 15 minutes Total Time Includes: Examination of the Patient, Discharge Planning, Medication Reconciliation, Communication With Other Providers and Other Discharge Plan Discharge Items Patient Disposition: Against Medical Advice Reason For Visit: HTN CRISIS Discharge Diagnosis: Stroke like symptoms Uncontrolled hypertension Activity: Resume your previous activity Non-emergency contact: Primary Care Provider Call non-emergency contact if: you have any medication questions Follow-up/Referrals: Lexus Mitchell, [Primary Care Provider] - Diet: Carb Consistent or DM2 and Heart Healthy Addtl Attending Provider Instructions: Signed against medical advice Follow up with your primary care provider Continue monitor your blood pressure and seek for medical attention Pending Studies at Discharge: No Stand-Alone Forms: My Tale Me Stories, Smoking Cessation Medications and DC Order Prescriptions: Continued gabapentin 300 mg capsule 300 mg PO HS RF: 0 Trulicity 0.75 mg/0.5 mL pen injector 0.75 mg SUBCUT WK RF: 0 atorvastatin [Lipitor] 10 mg Tablet 10 mg PO DAILY RF: 0 lisinopril [Zestril] 40 mg Tablet 40 mg PO DAILY RF: 0 Discharge Orders: Left Against Medical Advice (Routine); Ordered 10/10/19 Ordered By: Katja Sanchez Admission Data Admit Date/Time: 10/10/19 05:05 Attending Provider: Katja Sanchez Admit Provider: Galileo Diallo Primary Care Provider: Lexus Mitchell Other Providers: Galileo Diallo ; Kasia Funk ; Noe Perkins ; Kasia Reza ; Abdulaziz Martinez
--- NOTE | 2019-10-10 13:00 | Electrocardiogram Report ---
Test Reason : Blood Pressure : / mmHG Vent. Rate : 102 BPM Atrial Rate : 102 BPM P-R Int : 178 ms QRS Dur : 092 ms QT Int : 360 ms P-R-T Axes : 027 -06 028 degrees QTc Int : 469 ms Poor data quality, interpretation may be adversely affected Sinus tachycardia Cannot rule out Anteroseptal infarct Abnormal ECG When compared with ECG of 14-SEP-2015 09:22, No significant change was found Confirmed by Pio Hardin ([id number]) on 10/10/2019 12:59:55 PM Referred By: REFERRED SELF Confirmed By:Pio Hardin
[2019-10-10] MEDS ORDERED: GABAPENTIN 300 MG CAP PO SCH (21:00)
[2019-10-10] MEDS ORDERED: INSULIN GLARGINE SOLOSTAR 100 UNITS/ML 3 ML PEN SC SCH (21:00)
[2019-10-11] MEDS ORDERED: ASPIRIN 81 MG ECTAB PO SCH (09:00)
--- NOTE | 2019-10-14 08:04 | Coding Query ---
CODING QUERY FOR UNCONTROLLED DIABETES To promote full compliance with coding requirements relating to patient care, provider participation is requested in all cases of sea captain uncertainty. Please assist us with the question(s) below: Coding Question: The term uncontrolled Diabetes was used throughout the record. To be able to code this diagnosis properly, could you please clarify the diagnosis below: ( ) Uncontrolled Diabetes meaning hypoglycemia ( ) Present on admission ( ) Not present on admission ( ) Unable to determine ( x ) Uncontrolled Diabetes meaning hyperglycemia ( x ) Present on admission ( ) Not present on admission ( ) Unable to determine ( ) Other (please specify) ( ) Present on admission ( ) Not present on admission ( ) Unable to determine Principal Diagnosis: "that condition established after study, to be chiefly responsible for occasioning the admission of the patient to the hospital for care." Co-Existing Principal Diagnosis: "when two or more diagnoses equally meet the criteria for principal diagnosis as determined by the circumstances of admission, diagnostic work up, and/or therapy provided, and the Alphabetic Index, Tabular List, or another coding guideline does not provide sequencing direction, any one of the diagnoses may be sequenced first." "When the physician has documented what appears to be a current diagnosis in the body of the record, but has not included the diagnosis in the final diagnostic statement, the physician should be asked whether the diagnosis should be added." ([facility] 2 QTR90. p3-4) CM
== END 2019-10-10 10:57 | disposition left against medical advice (07) ==
LOC: ED 02:13 → 2S 05:05 → INTOOBSV 05:05 → 2S 05:32

== ENCOUNTER 2021-05-12 18:01 | Inpatient (IN) ==
[2021-05-12 18:20] VITALS: TEMP 98.2
--- NOTE | 2021-05-12 20:05 | Emergency Department Note ---
Impression & Plan Diabetic foot infection, Hyperglycemia, Cellulitis of left foot, Diabetic foot ulcer ED Provider Note NAME: ULISSES ARZATE AGE: 41 SEX: M : 1980 ARRIVES VIA: Walk-In INFORMANT: Patient, ED PROVIDER(S): Juvenal Hudson MD Chief Complaint: Foot pain, foot ulceration HPI: Patient presents due to concern for worsening ulceration of his foot. The patient states that initially he was made about the size of a nickel or smaller but has progressively worsened over the last 3 weeks. The patient was seen by inside sales account manager last week and was referred for further evaluation and treatment. The patient states that he waited and presented now as the patient has had increasing pain. Patient denies any fevers chills chest pains or shortness of breath. The patient does not check his blood sugars and has a known history of diabetes. Patient denies any other acute symptoms at this time. ROS: See HPI for pertinent positives and negatives. A total of 10 systems were reviewed and otherwise negative. Past medical history: See below Surgical history: See below Social history: See below Physical Exam: GENERAL: NAD, non-toxic. EYE EXAM: Normal conjunctiva. PERRL, no anisocoria and EOM's grossly intact w/o pain. [OROPHARYNX: Moist mucus membranes. Edentulous. NECK: Supple, no nuchal rigidity, no adenopathy, non-tender. No signs of meningismus. LUNGS: Clear to auscultation. Normal chest wall mechanics. HEART: NSR, no MRG. ABDOMEN: Abdomen soft, non-tender, normo-active bowel sounds, no masses, no rebound or guarding. BACK: No CVA TTP. SKIN: No rashes and no bruising. UPPER EXTREMITIES: Upper extremities are grossly normal. LOWER EXTREMITIES: 3 x 3 cm stage III ulceration with no obvious probing to bone over the plantar aspect of the distal medial left foot. Mild surrounding erythema noted. No crepitus. NEURO EXAM: A&O x3, cranial nerves II-XII grossly intact, normal speech, moves all 4 extremities on command w/o issue. Differential diagnoses: Cellulitis, abscess, MRSA infection, DVT, necrotizing fasciitis, dermatitis, drug eruption, allergic reaction, as well as other pathologies. Course: Patient was seen and evaluated the bedside. Full history physical exam was performed. EKG interpreted by me Normal sinus rhythm, rate of 95, normal intervals, normal axis, no obvious ST elevations. Imaging Studies: See Below Cardiac monitoring: An order was placed for continuous cardiac monitoring. The monitor shows a rate of 92 with sinus rhythm. MDM: Patient presented to concern for left foot ulceration Blood work was obtained along with a wound culture. Patient was treated empirically with vancomycin and cefepime given the patient's history of diabetes given the possibility of P seudomonas and associated osteomyelitis. Covid negative. Patient with a white count of 9 with a normal H&H. Kidney function relatively unremarkable with borderline elevation glucose 105 and mild hypercalcemia 10.3. Procalcitonin is not elevated. Given the patient's concern for wound care and possible osteomyelitis mild I did speak with the on-call hospitalist Dr. Gurrola and the patient was admitted to the medicine service. 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 Social History Smoking Status: Never smoker Hx Alcohol Use: No Hx Substance Use: No Preferred Language: Honduran Communication Ability: Effective Visual Impairment: No Limitations Hearing Ability: Normal Sap Technical Developer Required: No Beliefs That Will Affect Care: None marital status: Current Living Situation: Family current occupational status: unemployed Other Information That Helps Us Care for You: No Feels Safe at Home: Yes Safety Concerns: Feels Safe At This Time Dental Care, Regularly: No Assistive Devices: None Allergies Allergies Allergy/AdvReac Type Severity Reaction Status Date / Time Penicillins Allergy Intermediate rash, hives Verified 05/12/21 20:25 walnut Allergy Verified 05/13/21 11:01 WALNUTS Allergy Severe ANAPHYLAXIS Uncoded 10/10/19 02:53 Home Meds Home Medications Medication Instructions Recorded Confirmed atorvastatin 10 mg tablet (Lipitor) 10 mg PO HS 01/16/18 05/12/21 lisinopril 40 mg tablet (Zestril) 40 mg PO DAILY 01/16/18 05/12/21 gabapentin 300 mg capsule 300 mg PO HS 03/08/19 05/12/21 dulaglutide 3 mg/0.5 mL 3 mg SUBCUT WK 05/12/21 05/12/21 subcutaneous pen injector ([facility]) Results & Data (ED) Vital Signs Vital Signs - 24 hr 05/12/21 18:17 05/12/21 20:21 05/12/21 21:06 Temperature 36.8 C Temperature Source Temporal Artery Scan Pulse Rate 97 H Pulse Rate [Finger] 95 H Respiratory Rate 20 18 Respiratory Effort / Characteristics Non-Labored Spontaneous Non-Labored Spontaneous Non-Labored Spontaneous Respiratory Depth Normal Normal Respiratory Pattern Regular Blood Pressure 167/111 H Blood Pressure [Right Arm] 168/116 H Blood Pressure Mean 129 Blood Pressure Mean [Right Arm] 133 Blood Pressure Position [Right Arm] Pulse Oximetry 98 95 Oxygen Delivery Method Room Air Room Air Sepsis Recent Fever Within 48 Hours No Sepsis New/Unexplained Change in Mental Status N/A Sepsis Action Taken by Nursing No Action Required 05/12/21 21:11 05/12/21 21:52 Temperature Temperature Source Pulse Rate Pulse Rate [Finger] 95 H Respiratory Rate 20 Respiratory Effort / Characteristics Non-Labored Spontaneous Non-Labored Spontaneous Respiratory Depth Normal Respiratory Pattern Blood Pressure Blood Pressure [Right Arm] 191/129 H Blood Pressure Mean Blood Pressure Mean [Right Arm] 149 Blood Pressure Position [Right Arm] Sitting Pulse Oximetry 96 99 Oxygen Delivery Method Room Air Room Air Sepsis Recent Fever Within 48 Hours Sepsis New/Unexplained Change in Mental Status Sepsis Action Taken by Half-Way Medications Current Medication List: was personally reviewed by me Laboratory Data Attestation: I reviewed the patient's lab results. Result diagrams: 05/13/21 05:52 05/13/21 05:52 Lab Results 05/12/21 05/12/21 05/12/21 Range/Units 20:10 20:10 20:10 WBC 9.84 (4.8-10.8) K/uL RBC 5.72 (4.7-6.1) M/uL Hgb 15.3 (14.0-18.0) g/dL Hct 45.5 (42-52) % MCV 79.5 L (80-100) fL MCH 26.7 (25-34) pg MCHC 33.6 (32-36) g/dL RDW Std Deviation 45.7 (36.4-46.3) fL RDW Coeff of Anjali 15.8 H (11.5-14.5) % Plt Count 360 (130-400) K/uL MPV 9.5 (7.4-10.4) fL Immature Gran % (Auto) 0.5 % Neut % (Auto) 64.9 % Lymph % (Auto) 20.4 % [place] % (Auto) 10.0 % Eos % (Auto) 4.0 % Baso % (Auto) 0.2 % Neut # (Auto) 6.39 (1.4-6.5) K/uL Lymph # (Auto) 2.01 (1.2-3.4) K/uL [place] # (Auto) 0.98 H (0.11-0.59) K/uL Eos # (Auto) 0.39 (0-0.5) K/uL Baso # (Auto) 0.02 (0-0.2) K/uL Immature Gran # (Auto) 0.05 H (0.00-0.02) K/uL PT 10.9 (9.0-12.0) Seconds INR 1.0 (0.9-1.1) APTT 30.9 (21.0-31.0) Seconds PTT Ratio 1.1 Sodium 135 L (136-145) mmol/L Potassium 5.0 (3.5-5.1) mmol/L Chloride 101 (98-107) mmol/L Carbon Dioxide 27 (21-32) mmol/L Anion Gap 7 (3-11) BUN 10 (6-23) mg/dl Creatinine 1.22 (0.6-1.4) mg/dl Est Cr Clr Drug Dosing 92.7 ml/min Est GFR ( Amer) 84.2 ml/min Est GFR (Non-Af Amer) 72.7 ml/min BUN/Creatinine Ratio 8.2 L (10-20) Glucose 105 H (70-99(Fasting)) mg/dl Lactate (0.4-2.0) mmol/L Calcium 10.3 H (8.5-10.1) mg/dl Magnesium 1.8 (1.7-2.4) mg/dl Total Bilirubin 0.7 (0.2-1.0) mg/dl AST 29 (13-39) U/L ALT 26 (7-52) U/L Alkaline Phosphatase 81 (34-104) U/L Total Protein 8.5 H (6.0-8.3) gm/dl Albumin 4.0 (3.4-5.0) gm/dl Globulin 4.5 H (2.5-4.0) gm/dl Albumin/Globulin Ratio 0.9 (0.9-2) Procalcitonin (0-0.5) ng/ml SARS-CoV-2, RNA, NAAT (NEGATIVE) 05/12/21 05/12/21 05/12/21 Range/Units 20:10 20:39 21:10 WBC (4.8-10.8) K/uL RBC (4.7-6.1) M/uL Hgb (14.0-18.0) g/dL Hct (42-52) % MCV (80-100) fL MCH (25-34) pg MCHC (32-36) g/dL RDW Std Deviation (36.4-46.3) fL RDW Coeff of Anjali (11.5-14.5) % Plt Count (130-400) K/uL MPV (7.4-10.4) fL Immature Gran % (Auto) % Neut % (Auto) % Lymph % (Auto) % [place] % (Auto) % Eos % (Auto) % Baso % (Auto) % Neut # (Auto) (1.4-6.5) K/uL Lymph # (Auto) (1.2-3.4) K/uL [place] # (Auto) (0.11-0.59) K/uL Eos # (Auto) (0-0.5) K/uL Baso # (Auto) (0-0.2) K/uL Immature Gran # (Auto) (0.00-0.02) K/uL PT (9.0-12.0) Seconds INR (0.9-1.1) APTT (21.0-31.0) Seconds PTT Ratio Sodium (136-145) mmol/L Potassium (3.5-5.1) mmol/L Chloride (98-107) mmol/L Carbon Dioxide (21-32) mmol/L Anion Gap (3-11) BUN (6-23) mg/dl Creatinine (0.6-1.4) mg/dl Est Cr Clr Drug Dosing ml/min Est GFR ( Amer) ml/min Est GFR (Non-Af Amer) ml/min BUN/Creatinine Ratio (10-20) Glucose (70-99(Fasting)) mg/dl Lactate 1.7 (0.4-2.0) mmol/L Calcium (8.5-10.1) mg/dl Magnesium (1.7-2.4) mg/dl Total Bilirubin (0.2-1.0) mg/dl AST (13-39) U/L ALT (7-52) U/L Alkaline Phosphatase (34-104) U/L Total Protein (6.0-8.3) gm/dl Albumin (3.4-5.0) gm/dl Globulin (2.5-4.0) gm/dl Albumin/Globulin Ratio (0.9-2) Procalcitonin < 0.05 (0-0.5) ng/ml SARS-CoV-2, RNA, NAAT NEGATIVE (NEGATIVE) Administered Medications Discontinued Medications Hydralazine HCl (Hydralazine Hcl 20 Mg/Ml Vial) 10 mg IV Q6H PRN PRN Reason: Hypertension Stop: 06/12/21 01:28 Last Admin: 05/13/21 01:47 Dose: 10 mg Documented by: [id number] Vancomycin HCl 2,500 mg/ (Sodium Chloride) 550 mls @ 200 mls/hr IV NOW STA Stop: 05/12/21 22:59 Last Infusion: 05/13/21 01:03 Dose: 0 mls/hr Documented by: [id number] Infusion: 05/12/21 21:55 Dose: 179 mls/hr Documented by: [id number] Admin: 05/12/21 21:52 Dose: 200 mls/hr Documented by: [id number] Sodium Chloride (Nss 1000ml) 1,000 mls @ 999 mls/hr IV .Q1H1M TRINH Stop: 05/12/21 21:15 Last Infusion: 05/12/21 22:14 Dose: 0 mls/hr Documented by: [id number] Admin: 05/12/21 21:04 Dose: 999 mls/hr Documented by: [id number] Cefepime HCl (Maxipime) 2,000 mg in 20 mls @ 5 mls/min IV NOW STA; Protocol Stop: 05/12/21 20:18 Last Admin: 05/12/21 21:11 Dose: 5 mls/min Documented by: [id number] Meropenem 500 mg/ Syringe 10 mls @ 2 mls/min IV Q6H TRINH; Protocol Stop: 05/20/21 01:59 Last Admin: 05/13/21 08:05 Dose: 2 mls/min Documented by: [id number] Cosigned by: [id number] Admin: 05/13/21 02:14 Dose: 2 mls/min Documented by: [id number] Sodium Chloride (Nss 1000ml) 1,000 mls @ 100 mls/hr IV .Q10H TRINH Stop: 06/12/21 01:28 Last Infusion: 05/13/21 13:02 Dose: 0 mls/hr Documented by: [id number] Admin: 05/13/21 12:14 Dose: 100 mls/hr Documented by: [id number] Infusion: 05/13/21 11:44 Dose: 100 mls/hr Documented by: [id number] Admin: 05/13/21 01:44 Dose: 100 mls/hr Documented by: [id number] Vancomycin HCl 1,000 mg/ (Sodium Chloride) 270 mls @ 200 mls/hr IV Q12H [facility] Stop: 05/20/21 06:59 Last Infusion: 05/13/21 07:53 Dose: 0 mls/hr Documented by: [id number] Admin: 05/13/21 06:26 Dose: 200 mls/hr Documented by: [id number] Insulin Aspart (Insulin Aspart Per Unit) 0 units SC Q6 TRINH Stop: 06/12/21 05:59 Last Admin: 05/13/21 06:15 Dose: Not Given Documented by: [id number] Cosigned by: [id number] Insulin Glargine (Insulin Glargine Solostar 100 Units/Ml 3 Ml Pen) 5 units SC DAILY TRINH Stop: 06/12/21 08:59 Last Admin: 05/13/21 08:17 Dose: Not Given Documented by: [id number] Labetalol HCl (Labetalol Hcl Iv 5 Mg/Ml 20ml) 10 mg IV NOW STA Stop: 05/12/21 23:03 Last Admin: 05/12/21 23:12 Dose: 10 mg Documented by: [id number] Cosigned by: [id number] Lisinopril (Lisinopril 40 Mg Tab) 40 mg PO DAILY TRINH Stop: 06/12/21 08:59 Last Admin: 05/13/21 07:52 Dose: 40 mg Documented by: [id number] Ondansetron HCl (Ondansetron Inj 2 Mg/Ml 2 Ml Vial) 4 mg IV Q6H PRN PRN Reason: Nausea Stop: 06/12/21 01:28 Last Admin: 05/13/21 04:39 Dose: 4 mg Documented by: [id number] Imaging Data Radiologist's Impression: Foot X-Ray 05/12/21 20:34 LEFT FOOT 2 VIEWS CLINICAL HISTORY: Left lateral foot ulcer. FINDINGS: AP and lateral views of the left foot are compared to study dated 04/30/2021. The skeletal structures are osteopenic. No acute fracture is identified. There is mild erosive change within the lateral aspect of the fifth metatarsal head. This is deep to a cutaneous ulceration and there is overlying soft tissue edema. No additional foci of bony erosion are identified. There is mild osteoarthritic change at the first metatarsophalangeal joint. An os navicularis is incidentally noted. There is a high arch. Atherosclerotic calcification is seen in the regional arteries. There are tiny dorsal and plantar calcaneal enthesophytes. IMPRESSION: 1. No fracture. 2. There is erosion within the lateral head of the fifth metatarsal. This is located deep to a cutaneous ulceration and is highly suspicious for osteomyelitis. 3. Soft tissue edema is noted throughout the forefoot, greatest laterally. Electronically signed by: Ferny Moran M.D. 05/13/2021 8:19 AM Discharge Plan Visit Data Chief Complaint: Foot Injury/Pain Stated Complaint: ULCERS ON L FOOT, PAIN ED Provider: Juvenal Hudson Discharge Problem: Diabetic foot infection, Hyperglycemia, Cellulitis of left foot, Diabetic foot ulcer Patient Disposition: Admitted As Inpatient Discharge Instructions Interventions: ED Discharge Assessment Last Done: 05/13/21 01:06
[2021-05-12] MEDS ORDERED: VANCOMYCIN HCL 2,500 MG in SODIUM CHLORIDE 0.9% 500 ML IV STA (20:15)
[2021-05-12] MEDS ORDERED: VANCOMYCIN CONSULT ACTIVE PRN (20:15)
[2021-05-12] MEDS ORDERED: SODIUM CHLORIDE 0.9% 1000ML 1,000 ML IV SCH (20:15)
[2021-05-12] MEDS ORDERED: CEFEPIME 2,000 MG/20 ML VIAL IV STA (20:15)
[2021-05-12 20:28] LABS: Basophils # (auto) 0.02 K/uL (0-0.2); Basophils % (auto) 0.2 %; Eosinophils # (auto) 0.39 K/uL (0-0.5); Hematocrit (blood only) 45.5 % (42-52); Hemoglobin 15.3 g/dL (14.0-18.0); Immature Granulocytes # (auto) 0.05 K/uL (0.00-0.02); Immature Granulocytes % (auto) 0.5 %; Lymphocytes # (auto) 2.01 K/uL (1.2-3.4); Lymphocytes % (auto) 20.4 %; Mean Corpuscular Hemoglobin 26.7 pg (25-34); Mean Corpuscular Hgb Conc 33.6 g/dL (32-36); Mean Corpuscular Volume 79.5 fL (80-100); Mean Platelet Volume 9.5 fL (7.4-10.4); Monocytes # (auto) 0.98 K/uL (0.11-0.59); Neutrophils # (auto) 6.39 K/uL (1.4-6.5); Neutrophils % (auto) 64.9 %; Platelet Count 360 K/uL (130-400); RDW Coefficient of Variation 15.8 % (11.5-14.5); RDW Standard Deviation 45.7 fL (36.4-46.3); Red Blood Count 5.72 M/uL (4.7-6.1); White Blood Count 9.84 K/uL (4.8-10.8)
[2021-05-12 20:41] LABS: Partial Thromboplastin Ratio 1.1; Partial Thromboplastin Time 30.9 Seconds (21.0-31.0); Prothrombin Time 10.9 Seconds (9.0-12.0)
[2021-05-12 20:50] LABS: Albumin Globulin Ratio 0.9 (0.9-2); BUN Creatinine Ratio 8.2 (10-20); Bilirubin,Total 0.7 mg/dl (0.2-1.0); Calcium 10.3 mg/dl (8.5-10.1); Creatinine Clr Calc Pharmacy 92.7 ml/min; Est GFR (African American) 84.2 ml/min; Est GFR (Non-African American) 72.7 ml/min; Globulin 4.5 gm/dl (2.5-4.0); Magnesium 1.8 mg/dl (1.7-2.4); Total Protein 8.5 gm/dl (6.0-8.3)
[2021-05-12] MEDS ORDERED: LABETALOL HCL IV 5 MG/ML 20ML IV STA (23:02)
--- NOTE | 2021-05-12 23:09 | History and Physical Report ---
DATE OF ADMISSION: 05/12/2021. CHIEF COMPLAINT: Nonhealing left diabetic foot ulcer. HISTORY OF PRESENT ILLNESS: A 41-year-old male with past medical history significant for type 2 diabetes, diabetic retinopathy of the right eye, peripheral artery disease, hypertension, who comes with a nonhealing left foot diabetic ulcer. The patient's wound is there for the last 20 days. Initially, there was a blister that popped up. He stated that he was treated with oral antibiotics, but it is not getting better. Following with wound care. As it is not getting better, he was advised to come to the hospital. The patient is not happy that he is getting admitted. He says if given time, it will heal, but okay to stay in the hospital. Once in a while, he gets pain, he is ambulating on the leg. He says he does not know how long he is diabetic, but he is taking diabetic medication for the last 10 years. He does not check his blood sugars regularly at home. Denies any fever or chills. No chest pain, no shortness of breath, no nausea, no vomiting, no headache, no blurred visions, no earache, no runny nose, no sore throat, no cough, no abdominal pain. Normal bowel and bladder movements. Currently resting comfortably and hemodynamically stable. ALLERGIES: PENICILLINS AND WALNUTS. PAST MEDICAL HISTORY: As mentioned above. PAST SURGICAL HISTORY: Shunt for hydrocephalus. MEDICATIONS: The patient is on atorvastatin 10 mg p.o. at bedtime, Trulicity 3 mg subcutaneous weekly, gabapentin 300 mg p.o. at bedtime, lisinopril 40 mg p.o. daily. FAMILY HISTORY: Significant for mother has lung cancer, aunt has diabetes. SOCIAL HISTORY: . No smoking, no alcohol, no drug use. REVIEW OF SYSTEMS: As per HPI. Rest of the review of systems is negative. PHYSICAL EXAMINATION: GENERAL: The patient is of moderate built, not in acute distress. VITAL SIGNS: Temperature 36.8, pulse 95, respiratory rate 18, blood pressure 168/116, oxygen 96% on room air. HEENT: Pupils equal, round and reactive to light. Oral mucosa - absent teeth, moist. NECK: No JVD, no neck masses. CARDIOVASCULAR: S1 and S2 heard. Regular rate and rhythm. No murmur, no gallop. RESPIRATORY SYSTEM: Normal AP diameter. No accessory muscle use. No wheezing, no crackles. ABDOMEN: Soft, bowel sounds present, nontender, no distention. CENTRAL NERVOUS SYSTEM: Cranial nerves II-XII are grossly intact, nonfocal. EXTREMITIES: Left foot diabetic ulcer is seen on the lateral aspect below the small finger about 2 x 2 cm. LABORATORY DATA: WBC 9.8, hemoglobin 15.3, hematocrit 45.5, platelets 360. PT 10.9, INR 1, APTT 30.9. Sodium 135, potassium 5, chloride 101, bicarbonate 27, BUN 10, creatinine 1.2, serum glucose 105. Lactate 1.7, calcium 10.3, magnesium 1.8, total bilirubin 0.7, AST 29, ALT 26, alkaline phosphatase 81. Procalcitonin less than 0.05. SARS-CoV-2 RNA rapid test negative. IMAGING: Foot x-ray pending. EKG: Normal sinus rhythm at a rate of 95, no significant change was found. ASSESSMENT AND PLAN: This 41-year-old male presents with nonhealing left diabetic foot ulcer. 1. Nonhealing left diabetic foot ulcer: Going on for the last 20 days, failed outpatient treatment with oral antibiotics. The patient follows with wound care clinic. Foot x-ray results are pending. Emergency Room gave vancomycin and cefepime. We will empirically give vancomycin and meropenem as THE PATIENT IS ALLERGIC TO PENICILLINS. We will also get arterial Doppler. Consult orthopedics in the a.m. Follow up with wound care in the a.m. Follow the response. Await orthopedics input. 2. Hypertension: Continue lisinopril. iv hydralazine prn 3. Diabetes: Holding Trulicity. Place on Lantus 5 units daily and insulin sliding scale. We will keep n.p.o. after midnight. Monitor the blood sugars, follow HbA1c levels. 4. History of hyperlipidemia: Continue statin. 5. Deep venous thrombosis prophylaxis: Sequential compression devices for now. If no procedure is planned, we will place him on Lovenox. DISPOSITION: Monitor in the medical floor. PT, OT prior to discharge. Social service to help with discharge planning. Level 1, full code. Job ID: [id number] [facility]
[2021-05-13] MEDS ORDERED: hydrALAZINE HCL 20 MG/ML VIAL IV PRN (01:29)
[2021-05-13] MEDS ORDERED: ONDANSETRON INJ 2 MG/ML 2 ML VIAL IV PRN (01:29)
[2021-05-13] MEDS ORDERED: ACETAMINOPHEN 325 MG TAB PO PRN (01:29)
[2021-05-13] MEDS ORDERED: MEROPENEM CONSULT ACTIVE PRN (01:29)
[2021-05-13] MEDS ORDERED: POLYETHYLENE (MIRALAX) 17 GM PACK PO PRN (01:29)
[2021-05-13] MEDS: SODIUM CHLORIDE 0.9% 1000ML 1,000 ML IV SCH ×2 (01:44→12:14)
[2021-05-13] MEDS: MEROPENEM 500 MG in SYRINGE 0 ML IV SCH ×2 (02:14→08:05)
[2021-05-13] MEDS ORDERED: Nursing to Pharmacy Communication SCH ×2 (02:30→12:15)
[2021-05-13 02:42] LABS: Appearance Urine Clear (Clear); Bacteria Urine Automated Negative (Negative); Bilirubin Urine Negative (Negative); Blood Urine Negative (Negative); Color Urine Yellow; Glucose Urine UA Negative (Negative); Ketones Urine Negative (Negative); Leukocyte Esterase Urine Negative (Negative); Nitrite Urine Negative (Negative); Protein Urine 3+ (Negative); RBC Urine Automated 0-4 /hpf (0-4); Specific Gravity Urine 1.014 (1.000-1.030); Urobilinogen Urine Negative (Negative); pH Urine 6.5 (4.5-7.5)
[2021-05-13] MEDS ORDERED: GLUCAGON FOR INJ 1 MG VIAL IM PRN (02:45)
[2021-05-13] MEDS ORDERED: GLUCOSE 40% GEL 15 GM TUBE PO PRN (02:45)
[2021-05-13] MEDS ORDERED: CARBOHYDRATES FOR HYPOGLYCEMIA PO PRN (02:45)
[2021-05-13] MEDS ORDERED: DEXTROSE 50% 50 ML SYRINGE IV PRN (02:45)
[2021-05-13] MEDS ORDERED: GLUCOSE 10 TABS/TUBE PO PRN (02:45)
[2021-05-13] MEDS ORDERED: INSULIN ASPART PER UNIT SC SCH ×3 (06:00→16:30)
[2021-05-13 06:12] LABS: Basophils # (auto) 0.06 K/uL (0-0.2); Basophils % (auto) 0.5 %; Eosinophils # (auto) 0.38 K/uL (0-0.5); Eosinophils % (auto) 3.5 %; Hematocrit (blood only) 42.2 % (42-52); Hemoglobin 13.6 g/dL (14.0-18.0); Immature Granulocytes # (auto) 0.05 K/uL (0.00-0.02); Immature Granulocytes % (auto) 0.5 %; Lymphocytes # (auto) 2.19 K/uL (1.2-3.4); Lymphocytes % (auto) 20.1 %; Mean Corpuscular Hemoglobin 25.9 pg (25-34); Mean Corpuscular Hgb Conc 32.2 g/dL (32-36); Mean Corpuscular Volume 80.4 fL (80-100); Mean Platelet Volume 9.4 fL (7.4-10.4); Monocytes % (auto) 9.2 %; Neutrophils # (auto) 7.24 K/uL (1.4-6.5); Neutrophils % (auto) 66.2 %; Platelet Count 305 K/uL (130-400); RDW Standard Deviation 46.9 fL (36.4-46.3); Red Blood Count 5.25 M/uL (4.7-6.1); White Blood Count 10.92 K/uL (4.8-10.8)
[2021-05-13 06:34] LABS: BUN Creatinine Ratio 9.6 (10-20); Calcium 9.1 mg/dl (8.5-10.1); Creatinine Clr Calc Pharmacy 108.3 ml/min; Est GFR (African American) 102.2 ml/min; Est GFR (Non-African American) 88.1 ml/min; Magnesium 1.7 mg/dl (1.7-2.4); Potassium 4.5 mmol/L (3.5-5.1)
[2021-05-13] MEDS ORDERED: VANCOMYCIN HCL 1,000 MG in SODIUM CHLORIDE 0.9% 250 ML IV SCH (07:00)
[2021-05-13 07:38] LABS: Estimated Average Glucose 140 mg/dl; Hemoglobin A1C 6.5 % (4.5-5.6)
[2021-05-13 07:46] VITALS: O2SAT 95
--- NOTE | 2021-05-13 08:17 | Ultrasound Report ---
US arterial duplex LE LT CLINICAL HISTORY: non healing diabetic foot ulcer left. hx of PAD. COMPARISON: None. TECHNIQUE: Duplex sonography of left lower extremity arterial system was performed. Velocity measure ments provided are in centimeters per second FINDINGS: Simms scale, Doppler spectral analysis, and color imaging performed. Left common femoral artery: Triphasic flow velocity. 104 Left profunda femoris artery: Triphasic flow velocity. 87 Left superficial femoral artery: Triphasic flow velocity. 135 distally Left popliteal artery: Triphasic flow velocity. 139 distally Left posterior tibial artery: Triphasic. flow velocity. 95 distally Left anterior tibial artery: Triphasic flow velocity. 106 distally Left dorsalis pedis artery: Triphasic flow velocity. 108 Left peroneal artery: Triphasic flow velocity. 78 distally Left flow velocities: No segmental elevation in flow velocity is noted on the right to suggest a foc al stenosis. Left groin there is a prominent anatomic lymph node present in the left groin measuring 3.0 x 1.1 x 2 .8 cm. IMPRESSION: 1. Patent arterial flow. No significantly elevated flow velocity to suggest focal stenosis in the low er extremities. 2. Mildly prominent, anatomic appearing left groin lymph node. ACT 112: Negative or not required by law. Electronically signed by: Chang Null M.D. 05/13/2021 8:15 AM
--- NOTE | 2021-05-13 08:20 | XRay Report ---
LEFT FOOT 2 VIEWS CLINICAL HISTORY: Left lateral foot ulcer. FINDINGS: AP and lateral views of the left foot are compared to study dated 04/30/2021. The skeletal st ructures are osteopenic. No acute fracture is identified. There is mild erosive change within the lat eral aspect of the fifth metatarsal head. This is deep to a cutaneous ulceration and there is overlyi ng soft tissue edema. No additional foci of bony erosion are identified. There is mild osteoarthritic change at the first metatarsophalangeal joint. An os navicularis is incidentally noted. There is a h igh arch. Atherosclerotic calcification is seen in the regional arteries. There are tiny dorsal and p lantar calcaneal enthesophytes. IMPRESSION: 1. No fracture. 2. There is erosion within the lateral head of the fifth metatarsal. This is located deep to a cutane ous ulceration and is highly suspicious for osteomyelitis. 3. Soft tissue edema is noted throughout the forefoot, greatest laterally. Electronically signed by: Ferny Moran M.D. 05/13/2021 8:19 AM
[2021-05-13] MEDS ORDERED: lisinopril 40 MG TAB PO SCH (09:00)
[2021-05-13] MEDS ORDERED: INSULIN GLARGINE SOLOSTAR 100 UNITS/ML 3 ML PEN SC SCH (09:00)
[2021-05-13 10:34] VITALS: BP 165/118; PULSE 96
--- NOTE | 2021-05-13 10:47 | Electrocardiogram Report ---
Test Reason : Blood Pressure : / mmHG Vent. Rate : 095 BPM Atrial Rate : 095 BPM P-R Int : 182 ms QRS Dur : 094 ms QT Int : 372 ms P-R-T Axes : 038 -25 046 degrees QTc Int : 467 ms Poor data quality, interpretation may be adversely affected Normal sinus rhythm Possible Left atrial enlargement Borderline ECG When compared with ECG of 30-APR-2021 20:22, No significant change was found Confirmed by Javier Biggs ([id number]) on 05/13/2021 10:46:58 AM Referred By: REFERRED SELF Confirmed By:Shaw Biggs
--- NOTE | 2021-05-13 10:54 | Pharmacy Report ---
Pharmacy Vanc AUC Short Note - Date of Service May 13, 2021 - Assessment & Plan Assessment 41 year old M receiving Vancomycin for treatment of Diabetic foot ulcer. Pertinent microbiologic data includes: Group B beta strep and MSSA from Foot culture on 05/07/21. New cultures from 05/12/21 - wound and blood cultures pending. Day #2 of antimicrobial therapy. Patient had been on Moxifloxacin and Bactrim recently for above infection with no improvement. Spoke to patient on the phone today about Penicillin allergy. He seemed to have been on Amoxicillin in 12/2020. He said he must have taken the Amox and did not remember an allergic reaction from it. Unsure if patient is truly allergic to Penicillin or not. Plan Vancomycin * AUC/PAMELA is the preferred PK/PD target for vancomycin * AUC guided dosing is effective and associated with decreased risk of nephrotoxicity compared to traditional trough targets * Vancomycin loading dose of 2500 mg IV given yesterday night, ad 1000 mg IV q12h started this AM. * Expect a trough level of between 12-20 mcg/mL which is predicted to achieve target AUC/PAMELA of 400-600 mg/L.hr and may be associated with a 8 % risk of nephrotoxicity * Trough Vanco level ordered for: 05/15/21 before dose at 0700 Pharmacy will continue to follow and will adjust dose/frequency as necessary. Thank you.
--- NOTE | 2021-05-13 11:37 | Orthopedic Consultation ---
Date of Consultation May 13, 2021 Assessment & Plan (1) Diabetic ulcer of left foot: X-rays reviewed. Patient had a plain film done of his left foot on 04/30/2020. This was not showing any signs of bony involvement. However follow- up film done yesterday, now does show some erosions over the fifth metatarsal head. Patient will obviously need irrigation and debridement of his ulcerative wound. We will schedule an MRI today to rule out or confirm osteomyelitis of the fifth metatarsal head. If osteomyelitis is present, patient may have to undergo 5th metatarsal head resection. I have discussed this with the patient in detail. We discussed that his surgery may not be until tomorrow versus . If that is the case he would have to stay in the hospital at least into the weekend. Patient feels that he would be able to do this. We will let him eat today. I will discuss the case with Dr. Vega and plan accordingly for his irrigation and debridement. Will wait to see what the MRI shows concerning his fifth metatarsal head. History of Present Illness Reason for Consultation: Left foot diabetic ulcer Attending Physician: Shiloh Belcher MD History of Present Illness A 41-year-old male with past medical history significant for type 2 diabetes, diabetic retinopathy of the right eye, peripheral artery disease, hypertension, who comes with a nonhealing left foot diabetic ulcer.Patient came to the emergency room per request of wound care/podiatry. Patient states that he has been dealing with a diabetic ulcer over the left fifth metatarsal head area for close to 20 days. It initially presented itself as a blister which worsened over time. He apparently has been treated at wound care is and has seen a general studies program chair in the recent past. This continued to worsen and he was asked to come to the emergency room to be evaluated. He was seen by the staff and x-rays were taken. He was begrudgingly admitted to the hospitalist service for IV antibiotics and we have been asked to see him for his diabetic ulcer. Patient is currently adamant about staying in the hospital for a long period of time however after much discussion, he seemed more amenable. He is not having any pain at this point in time. Allergies Allergy/AdvReac Type Severity Reaction Status Date / Time Penicillins Allergy Intermediate rash, hives Verified 05/12/21 20:25 walnut Allergy Verified 05/13/21 11:01 WALNUTS Allergy Severe ANAPHYLAXIS Uncoded 10/10/19 02:53 Home Medications Medication Instructions Recorded Confirmed Type atorvastatin 10 mg tablet (Lipitor) 10 mg PO HS 01/16/18 05/12/21 History lisinopril 40 mg tablet (Zestril) 40 mg PO DAILY 01/16/18 05/12/21 History gabapentin 300 mg capsule 300 mg PO HS 03/08/19 05/12/21 History dulaglutide 3 mg/0.5 mL 3 mg SUBCUT WK 05/12/21 05/12/21 History subcutaneous pen injector (Trulicity) Patient History Medical History Diabetes HLD (hyperlipidemia) Hypertension Jaw dislocation Noncompliance with medication regimen Surgical History S/P [employer] shunt Social History Smoking Status: Never smoker Hx Alcohol Use: No Hx Substance Use: No Preferred Language: Romanian Communication Ability: Effective Visual Impairment: No Limitations Hearing Ability: Normal [employer] Up Technician Required: No Beliefs That Will Affect Care: None marital status: Current Living Situation: Family current occupational status: unemployed Other Information That Helps Us Care for You: No Feels Safe at Home: Yes Safety Concerns: Feels Safe At This Time Dental Care, Regularly: No Assistive Devices: None Physical Exam Physical Exam: On examination patient is a 41-year-old white male. Alert and oriented x3. No acute distress. Pleasant and cooperative. Examination of his left foot, his sock is removed wrist reveals an Optifoam dressing. There is some drainage noted through the Optifoam dressing. Wound care team is present and removed the Optifoam dressing. This reveals a large ulcerative area over the fifth metatarsal head that is approximately 3 to 4 cm in height and at its width is at least 3 to 4 cm at the distal portion of it. He has some slight pink base around the edges of the base of the wound and other portions are a callus type formation versus macerated skin. The central base has yellow purulent looking material. There is a slight odor. 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 I am able to palpate a dorsalis pedis pulse which is faint. Wound is redressed by wound care team. Results & Data ([facility]) Vital Signs (Past 12 Hours) Vital Signs Temp Pulse Pulse Resp BP BP BP 05/13/21 10:32 36.8 C 96 H 16 165/118 H 05/13/21 07:45 36.8 C 92 H 16 164/111 H 05/13/21 06:13 162/106 H 05/13/21 02:03 178/117 H 05/13/21 01:47 200/144 H 05/13/21 01:30 36.8 C 98 H 18 187/132 H 05/13/21 01:06 90 20 162/100 H 05/13/21 00:00 87 20 173/113 H 05/12/21 23:49 99 H 20 185/126 H 05/12/21 23:40 92 H 20 193/127 H Pulse Ox 05/13/21 10:32 95 05/13/21 07:45 95 05/13/21 06:13 05/13/21 02:03 05/13/21 01:47 05/13/21 01:30 97 05/13/21 01:06 95 05/13/21 00:00 95 05/12/21 23:49 95 05/12/21 23:40 97 Diagnostic Findings Laboratory Results WBC 10.92 K/uL (4.8-10.8) H 05/13/21 05:52 RBC 5.25 M/uL (4.7-6.1) 05/13/21 05:52 Hgb 13.6 g/dL (14.0-18.0) L 05/13/21 05:52 Hct 42.2 % (42-52) 05/13/21 05:52 MCV 80.4 fL (80-100) 05/13/21 05:52 MCH 25.9 pg (25-34) 05/13/21 05:52 MCHC 32.2 g/dL (32-36) 05/13/21 05:52 RDW Std Deviation 46.9 fL (36.4-46.3) H 05/13/21 05:52 RDW Coeff of Anjali 16.0 % (11.5-14.5) H 05/13/21 05:52 Plt Count 305 K/uL (130-400) 05/13/21 05:52 MPV 9.4 fL (7.4-10.4) 05/13/21 05:52 Immature Gran % (Auto) 0.5 % 05/13/21 05:52 Neut % (Auto) 66.2 % 05/13/21 05:52 Lymph % (Auto) 20.1 % 05/13/21 05:52 [place] % (Auto) 9.2 % 05/13/21 05:52 Eos % (Auto) 3.5 % 05/13/21 05:52 Baso % (Auto) 0.5 % 05/13/21 05:52 Neut # (Auto) 7.24 K/uL (1.4-6.5) H 05/13/21 05:52 Lymph # (Auto) 2.19 K/uL (1.2-3.4) 05/13/21 05:52 [place] # (Auto) 1.00 K/uL (0.11-0.59) H 05/13/21 05:52 Eos # (Auto) 0.38 K/uL (0-0.5) 05/13/21 05:52 Baso # (Auto) 0.06 K/uL (0-0.2) 05/13/21 05:52 Immature Gran # (Auto) 0.05 K/uL (0.00-0.02) H 05/13/21 05:52 PT 10.9 Seconds (9.0-12.0) 05/12/21 20:10 INR 1.0 (0.9-1.1) 05/12/21 20:10 APTT 30.9 Seconds (21.0-31.0) 05/12/21 20:10 PTT Ratio 1.1 05/12/21 20:10 Sodium 135 mmol/L (136-145) L 05/13/21 05:52 Potassium 4.5 mmol/L (3.5-5.1) 05/13/21 05:52 Chloride 106 mmol/L (98-107) 05/13/21 05:52 Carbon Dioxide 21 mmol/L (21-32) 05/13/21 05:52 Anion Gap 8 (3-11) 05/13/21 05:52 BUN 10 mg/dl (6-23) 05/13/21 05:52 Creatinine 1.04 mg/dl (0.6-1.4) 05/13/21 05:52 Est Cr Clr Drug Dosing 108.3 ml/min 05/13/21 05:52 Est GFR ( Amer) 102.2 ml/min 05/13/21 05:52 Est GFR (Non-Af Amer) 88.1 ml/min 05/13/21 05:52 BUN/Creatinine Ratio 9.6 (10-20) L 05/13/21 05:52 Glucose 104 mg/dl (70-99(Fasting)) H 05/13/21 05:52 POC Glucose 110 mg/dl (70-99) H 05/13/21 11:13 Estimat Average Glucose 140 mg/dl 05/13/21 05:52 Hemoglobin A1c 6.5 % (4.5-5.6) H 05/13/21 05:52 Lactate 1.7 mmol/L (0.4-2.0) 05/12/21 20:39 Calcium 9.1 mg/dl (8.5-10.1) 05/13/21 05:52 Magnesium 1.7 mg/dl (1.7-2.4) 05/13/21 05:52 Total Bilirubin 0.7 mg/dl (0.2-1.0) 05/12/21 20:10 AST 29 U/L (13-39) 05/12/21 20:10 ALT 26 U/L (7-52) 05/12/21 20:10 Alkaline Phosphatase 81 U/L (34-104) 05/12/21 20:10 Total Protein 8.5 gm/dl (6.0-8.3) H 05/12/21 20:10 Albumin 4.0 gm/dl (3.4-5.0) 05/12/21 20:10 Globulin 4.5 gm/dl (2.5-4.0) H 05/12/21 20:10 Albumin/Globulin Ratio 0.9 (0.9-2) 05/12/21 20:10 Procalcitonin < 0.05 ng/ml (0-0.5) 05/12/21 20:10 Urine Color Yellow 05/13/21 Unknown Urine Appearance Clear (Clear) 05/13/21 Unknown Urine pH 6.5 (4.5-7.5) 05/13/21 Unknown Ur Specific [place] 1.014 (1.000-1.030) 05/13/21 Unknown Urine Protein 3+ (Negative) H 05/13/21 Unknown Urine Glucose (UA) Negative (Negative) 05/13/21 Unknown Urine Ketones Negative (Negative) 05/13/21 Unknown Urine Blood Negative (Negative) 05/13/21 Unknown Urine Nitrite Negative (Negative) 05/13/21 Unknown Urine Bilirubin Negative (Negative) 05/13/21 Unknown Urine Urobilinogen Negative (Negative) 05/13/21 Unknown Ur Leukocyte Esterase Negative (Negative) 05/13/21 Unknown Urine WBC (Auto) 1-5 /hpf (0-5) 05/13/21 Unknown Urine RBC (Auto) 0-4 /hpf (0-4) 05/13/21 Unknown U Hyaline Cast (Auto) 1-5 /lpf (0-5) 05/13/21 Unknown U Epithel Cells (Auto) 10-20 /lpf (0-5) H 05/13/21 Unknown Urine Bacteria (Auto) Negative (Negative) 05/13/21 Unknown SARS-CoV-2, RNA, NAAT NEGATIVE (NEGATIVE) 05/12/21 21:10 Impressions Foot X-Ray 05/12/21 20:34 LEFT FOOT 2 VIEWS CLINICAL HISTORY: Left lateral foot ulcer. FINDINGS: AP and lateral views of the left foot are compared to study dated 04/30/2021. The skeletal structures are osteopenic. No acute fracture is identified. There is mild erosive change within the lateral aspect of the fifth metatarsal head. This is deep to a cutaneous ulceration and there is overlying soft tissue edema. No additional foci of bony erosion are identified. There is mild osteoarthritic change at the first metatarsophalangeal joint. An os navicularis is incidentally noted. There is a high arch. Atherosclerotic calcification is seen in the regional arteries. There are tiny dorsal and plantar calcaneal enthesophytes. IMPRESSION: 1. No fracture. 2. There is erosion within the lateral head of the fifth metatarsal. This is located deep to a cutaneous ulceration and is highly suspicious for osteomyelitis. 3. Soft tissue edema is noted throughout the forefoot, greatest laterally. Electronically signed by: Ferny Moran M.D. 05/13/2021 8:19 AM Duplex Scan Lower Extremity Artery 05/13/21 01:29 US arterial duplex LE LT CLINICAL HISTORY: non healing diabetic foot ulcer left. hx of PAD. COMPARISON: None. TECHNIQUE: Duplex sonography of left lower extremity arterial system was performed. Velocity measurements provided are in centimeters per second FINDINGS: Simms scale, Doppler spectral analysis, and color imaging performed. Left common femoral artery: Triphasic flow velocity. 104 Left profunda femoris artery: Triphasic flow velocity. 87 Left superficial femoral artery: Triphasic flow velocity. 135 distally Left popliteal artery: Triphasic flow velocity. 139 distally Left posterior tibial artery: Triphasic. flow velocity. 95 distally Left anterior tibial artery: Triphasic flow velocity. 106 distally Left dorsalis pedis artery: Triphasic flow velocity. 108 Left peroneal artery: Triphasic flow velocity. 78 distally Left flow velocities: No segmental elevation in flow velocity is noted on the right to suggest a focal stenosis. Left groin there is a prominent anatomic lymph node present in the left groin measuring 3.0 x 1.1 x 2.8 cm. IMPRESSION: 1. Patent arterial flow. No significantly elevated flow velocity to suggest foc al stenosis in the lower extremities. 2. Mildly prominent, anatomic appearing left groin lymph node. ACT 112: Negative or not required by law. Electronically signed by: Chang Null M.D. 05/13/2021 8:15 AM
[2021-05-13] MEDS ORDERED: CEFEPIME 2,000 MG in SYRINGE 0 ML IV SCH (14:00)
--- NOTE | 2021-05-13 14:14 | Discharge Summary ---
Date of Service May 13, 2021 Admission HPI Per Admitting Provider A 41-year-old male with past medical history significant for type 2 diabetes, diabetic retinopathy of the right eye, peripheral artery disease, hypertension, who comes with a nonhealing left foot diabetic ulcer. The patient's wound is there for the last 20 days. Initially, there was a blister that popped up. He stated that he was treated with oral antibiotics, but it is not getting better. Following with wound care. As it is not getting better, he was advised to come to the hospital. The patient is not happy that he is getting admitted. He says if given time, it will heal, but okay to stay in the hospital. Once in a while, he gets pain, he is ambulating on the leg. He says he does not know how long he is diabetic, but he is taking diabetic medication for the last 10 years. He does not check his blood sugars regularly at home. Denies any fever or chills. No chest pain, no shortness of breath, no nausea, no vomiting, no headache, no blurred visions, no earache, no runny nose, no sore throat, no cough, no abdominal pain. Normal bowel and bladder movements. Currently resting comfortably and hemodynamically stable. Admission Exam Per Admitting Provider GENERAL: The patient is of moderate built, not in acute distress. VITAL SIGNS: Temperature 36.8, pulse 95, respiratory rate 18, blood pressure 168/116, oxygen 96% on room air. HEENT: Pupils equal, round and reactive to light. Oral mucosa - absent teeth, moist. NECK: No JVD, no neck masses. CARDIOVASCULAR: S1 and S2 heard. Regular rate and rhythm. No murmur, no gallop. RESPIRATORY SYSTEM: Normal AP diameter. No accessory muscle use. No wheezing, no crackles. ABDOMEN: Soft, bowel sounds present, nontender, no distention. CENTRAL NERVOUS SYSTEM: Cranial nerves II-XII are grossly intact, nonfocal. EXTREMITIES: Left foot diabetic ulcer is seen on the lateral aspect below the small finger about 2 x 2 cm. Principal Diagnosis Diabetic ulcer of left foot Possible osteomyelitis Discharge Exam Constitutional + well hydrated; no acute distress Eyes PERRL, conjunctivae normal, anicteric sclerae ENMT external ear and nose normal, oropharynx normal Respiratory normal respiratory effort, lungs clear to auscultation Cardiovascular Rate/Rhythm: regular rate and regular rhythm S1 S2 Gastrointestinal (Abdomen) normal bowel sounds, soft, nontender, no hepatosplenomegaly Musculoskeletal Left foot ulcer on lateral aspect of foot around 5th metartarsal head Dressing stained with purulent drain. Neurologic PERRL, EOMI, accommodation nl, no face palsy, no dysarthria Psychiatric A+Ox3, euthymic affect Discharge Data Allergies Allergy/AdvReac Type Severity Reaction Status Date / Time Penicillins Allergy Intermediate rash, hives Verified 05/12/21 20:25 walnut Allergy Verified 05/13/21 11:01 WALNUTS Allergy Severe ANAPHYLAXIS Uncoded 10/10/19 02:53 Consultations 05/12/21 21:29 ED Decision to Admit Stat 05/13/21 08:00 Consult Orthopedic Surgery Routine Ordered Studies 05/13/21 01:29 US arterial duplex LE LT Urgent Hospital Course (1) Diabetic ulcer of left foot: (2) Diabetic foot infection: Left diabetic foot infection has been ongoing for 20 days Failed outpatient treatment and antibiotics. Foot XRay from 04/30/21 did not show any osteomyelitis However, Foot XRay on admission this time (05/12/21) showed erosion within the lateral head of the fifth metatarsal, located deep to a cutaneous ulceration and is highly suspicious for osteomyelitis. Patient was started on IV antibiotics (vanc, cefepime) Patient was evaluated by Ortho MRI foot was ordered However, patient decided he does not want to stay for treatment I spent 20mins explaining to patient the need for treatment, risks associated with nontreatment including progression of infection, sepsis and . He indicated understanding of risks and signed out AMA Total Time Total Time Spent Total Time Spent (In Minutes): 35 Total Time Includes: Examination of the Patient and Communication With Other Providers Discharge Plan Discharge Items Patient Disposition: Against Medical Advice Reason For Visit: DIABETIC FOOT WOUND Follow-up/Referrals: Lexus Mitchell DO [Primary Care Provider] - Stand-Alone Forms: My [facility] [employer], Smoking Cessation Medications and DC Order Prescriptions: No Action gabapentin 300 mg capsule 300 mg PO HS RF: 0 atorvastatin [Lipitor] 10 mg Tablet 10 mg PO HS RF: 0 lisinopril [Zestril] 40 mg Tablet 40 mg PO DAILY RF: 0 Trulicity 3 mg/0.5 mL pen injector 3 mg SUBCUT WK RF: 0 Discharge Orders: Left Against Medical Advice (Routine); Ordered 05/13/21 Ordered By: Shiloh Belcher Admission Data Admit Date/Time: 05/12/21 22:29 Attending Provider: Shiloh Belcher I. Admit Provider: Stu Jackson Primary Care Provider: Lexus Mitchell Other Providers: Charan Gurrola ; Alvarado Vega ; Stu Jackson
[2021-05-13] MEDS ORDERED: ATORVASTATIN 10 MG TAB PO SCH (21:00)
[2021-05-13] MEDS ORDERED: GABAPENTIN 300 MG CAP PO SCH (21:00)
[2021-05-15] MEDS ORDERED: VANCOMYCIN TROUGH ONE (06:30)
== END 2021-05-13 12:45 | disposition left against medical advice (07) | DRG 638 ==
LOC: ED 18:01 → SUATTDRO 22:29 → 3N 22:29